=== PATIENT | female | born 1965 | race African-American/Black ===

== ENCOUNTER 2016-09-20 17:46 | Emergency (ER) | payer MEDICARE, OTHER ==
[~2016-09-20] VITALS: Ht 162.6 cm; Wt 76.0 kg
[~2016-09-20 17:46] MED LIST: AMBI10TA PO; IBUP800T23 PO; LORA1TAB PO; PROM25SU8 PO
[2016-09-20 17:47] VITALS: BP 127/81; PULSE 116; RESP 12; TEMP 99.3; O2SAT 94
[2016-09-20] MEDS ORDERED: [UNRECOGNIZED DRUG - CODE] (19:49)
[2016-09-20] MEDS ORDERED: LORA1TAB12 PO (19:49)
[2016-09-20] MEDS ORDERED: ZOLP10TA3 PO (19:49)
[2016-09-20] MEDS ORDERED: PERC10TA27 PO (19:49)
[2016-09-21 00:53] VITALS: BP 112/69; PULSE 110; RESP 20; O2SAT 95
[2016-09-21] MEDS ORDERED: methylPREDNISolone SOD SUCC 125 MG/2 ML VIAL IVP ONE (01:15)
[2016-09-21] MEDS ORDERED: SODIUM CHLORIDE 0.9% FLUSH 5 ML FLUSH IVF PRN (01:15)
[2016-09-21 01:25] VITALS: O2SAT 97
[2016-09-21] MEDS: RESP: ALBUTEROL 2.5 MG/IPRATROPIUM 0.5 MG NEB (SCH) INH (01:29)
--- NOTE | 2016-09-21 01:35 | RADRPT ---
EXAM DATE/TIME: 09/21/2016 01:22 [facility] COMPARISON: CHEST SINGLE AP, February 17, 2013, 3:39. CHEST SINGLE AP, August 17, 2013, 15:43. INDICATIONS : Shortness of breath. MEDICAL HISTORY : Throat Ca SURGICAL HISTORY : None. ENCOUNTER: Initial ACUITY: 1 day PAIN SCORE: 0/10 LOCATION: Bilateral chest FINDINGS: The cardiac silhouette is normal in transverse diameter. The lungs are free of acute parenchymal opac ity. No effusions are identified. [id number] is in place via left subclavian approach with its ti p in the superior vena cava. CONCLUSION: 1. No acute cardiopulmonary disease. Israel Mauricio MD on September 21, 2016 at 1:32 Board Certified Radiologist. This report was verified electronically.
[2016-09-21 01:48] LABS: AUTOMATED NEUTROPHIL # 5.4 TH/MM3 (1.8-7.7); BASOPHIL % 0.1 % (0.0-2.0); EOSINOPHIL # 0.1 TH/MM3 (0-0.4); EOSINOPHIL % 0.6 % (0.0-4.0); HEMATOCRIT 32.8 % (35.0-46.0); HEMO FLAGS DIFF FINAL; LYMPH % 24.3 % (9.0-44.0); MEAN CELL VOLUME 101.4 FL (80.0-100.0); MEAN CORPUSCULAR HEMOGLOBIN 34.9 PG (27.0-34.0); MEAN CORPUSCULAR HGB CONC 34.4 % (32.0-36.0); MONO % 10.1 % (0.0-8.0); NEUT % 64.9 % (16.0-70.0); PLATELET COUNT 135 TH/MM3 (150-450); RED BLOOD COUNT 3.23 MIL/MM3 (4.00-5.30); RED CELL DISTRIBUTION WIDTH 14.5 % (11.6-17.2); WHITE BLOOD COUNT 8.4 TH/MM3 (4.0-11.0)
[2016-09-21 02:17] LABS: POTASSIUM 3.8 MEQ/L (3.5-5.1)
--- NOTE | 2016-09-21 02:48 | PD ---
HPI Chief Complaint: Cold / Flu Symptoms Time Seen by Provider: 00:52 Travel History International Travel<30 days: No Contact w/Intl Traveler<30days: No Traveled to known affect area: No History of Present Illness HPI 51-year-old female arrives by private auto. She follows with Dr. Robles due to a history of Hodgkin's lymphoma. She underwent head scan recently which revealed findings in the chest concerning for possible pulmonary infection. The patient has been on Levaquin for 3 days or so. She reports a fairly frequent productive cough with white phlegm. Occasional dyspnea is reported. The patient received chemotherapy about 2 and half weeks ago. She is also scheduled for radiation therapy next week. Smoking 10 days ago. She reports a chest pain, mild, described as congestion. PFSH Past Medical History Blood Disorders: No Cancer: Yes (HODGKINS LYMPHOMA) Cardiovascular Problems: No Chemotherapy: Yes (EVERY 2.5 WEEKS) Diabetes: No Diminished Hearing: No Endocrine: No Glaucoma: No Genitourinary: No Headaches: Yes Hepatitis: No Hiatal Hernia: No Hypertension: No Musculoskeletal: No Psychiatric: No Reproductive: No Respiratory: No Radiation Therapy: Yes (last 2010) Thyroid Disease: No Tetanus Vaccination: < 5 Years Influenza Vaccination: No ?: Not Menopausal: Yes : 0 Past Surgical History Abdominal Surgery: Yes (ABD hernia repair) Body Medical Devices: UNDIAGNOSED LUMPS IN NECK, SURGERY SCHEDULED Cardiac Surgery: No Ear Surgery: No Endocrine Surgery: No Eye Surgery: No Gynecologic Surgery: Yes (HYSTERECTOMY 2002) Hysterectomy: Yes Oral Surgery: No Pacemaker: No Thoracic Surgery: No Other Surgery: Yes (STEM CELL TRANSPLANT 2008) Social History Alcohol Use: No Tobacco Use: Yes (3 cig/day) Substance Use: No Allergies-Medications (Allergen,Severity, Reaction): Coded Allergies: Percocet (Verified Allergy, Severe, Itching, 09/20/16) Zofran (Verified Allergy, Severe, Throat swelling, 09/20/16) Reported Meds & Prescriptions Reported Meds & Active Scripts Active Reported Percocet (Oxycodone-Acetaminophen) 10-325 mg Tab 1 Tab PO Q4H PRN Dulcolax Balance Liq (Polyethylene Glycol 3350) 1 Pow Pow Zolpidem (Zolpidem Tartrate) 10 Mg Tab 10 Mg PO HS PRN Lorazepam 1 Mg Tab 1 Mg PO Q8H PRN Review of Systems Except as stated in HPI: all other systems reviewed are Neg General / Constitutional: No: Fever, Chills Cardiovascular: Positive: Chest Pain or Discomfort Respiratory: Positive: Cough Physical Exam Narrative GENERAL: 51-year-old female pleasant and speaking in full sentences SKIN: Warm and dry. HEAD: Atraumatic. Normocephalic. EYES: Pupils equal and round. No scleral icterus. No injection or drainage. ENT: No nasal bleeding or discharge. Mucous membranes pink and moist. NECK: Trachea midline. No JVD. CARDIOVASCULAR: Regular rhythm. Trace tachycardia. RESPIRATORY: Lung sounds are clear. No accessory muscle use. No tachypnea GASTROINTESTINAL: Abdomen soft, non-tender, nondistended. Hepatic and splenic margins not palpable. MUSCULOSKELETAL: No obvious deformities. No clubbing. No cyanosis. No edema. NEUROLOGICAL: Awake and alert. No obvious cranial nerve deficits. Motor grossly within normal limits. Normal speech. PSYCHIATRIC: Appropriate mood and affect; insight and judgment normal. Data Data Last Documented VS Vital Signs Date Time Temp Pulse Resp B/P Pulse Ox O2 Delivery O2 Flow Rate FiO2 09/21/16 01:25 97 Room Air 09/21/16 00:53 110 20 112/69 09/20/16 17:47 99.3 VS reviewed Orders Complete Blood Count With Diff (09/21/16 01:06) Basic Metabolic Panel (Bmp) (09/21/16 01:06) Influenzae A/B Antigen (09/21/16 01:06) Iv Access Insert/Monitor (09/21/16 01:06) Ecg Monitoring (09/21/16 01:06) Oximetry (09/21/16 01:06) Oxygen Administration (09/21/16 01:06) Chest, Single Ap (09/21/16 01:06) Sodium Chloride 0.9% Flush (Ns Flush) (09/21/16 01:15) Methylprednisolone So Succ Inj (Solumedr (09/21/16 01:15) Albuterol-Ipratropium Neb (Duoneb Neb) (09/21/16 01:15) Albuterol Hfa Inh (Proair Hfa Inh) (09/21/16 03:30) Labs Laboratory Tests Test 09/21/16 01:20 White Blood Count 8.4 TH/MM3 Red Blood Count 3.23 MIL/MM3 Hemoglobin 11.3 GM/DL Hematocrit 32.8 % Mean Corpuscular Volume 101.4 FL Mean Corpuscular Hemoglobin 34.9 PG Mean Corpuscular Hemoglobin 34.4 % Concent Red Cell Distribution Width 14.5 % Platelet Count 135 TH/MM3 Mean Platelet Volume 8.2 FL Neutrophils (%) (Auto) 64.9 % Lymphocytes (%) (Auto) 24.3 % Monocytes (%) (Auto) 10.1 % Eosinophils (%) (Auto) 0.6 % Basophils (%) (Auto) 0.1 % Neutrophils # (Auto) 5.4 TH/MM3 Lymphocytes # (Auto) 2.0 TH/MM3 Monocytes # (Auto) 0.8 TH/MM3 Eosinophils # (Auto) 0.1 TH/MM3 Basophils # (Auto) 0.0 TH/MM3 CBC Comment DIFF FINAL Differential Comment Sodium Level 138 MEQ/L Potassium Level 3.8 MEQ/L Chloride Level 101 MEQ/L Carbon Dioxide Level 27.0 MEQ/L Anion Gap 10 MEQ/L Blood Urea Nitrogen 6 MG/DL Creatinine 0.82 MG/DL Estimat Glomerular Filtration 89 ML/MIN Rate Random Glucose 118 MG/DL Calcium Level 9.2 MG/DL MDM Medical Decision Making Medical Screen Exam Complete: Yes Emergency Medical Condition: Yes Medical Record Reviewed: Yes Differential Diagnosis Pneumonia, wheezing, reactive airway disease, COPD, volume overload Narrative Course CBC & BMP Diagram 09/21/16 01:20 Last 24 hours Impressions Chest X-Ray 09/21/16 0106 Signed Impressions: Service Date/Time: Wednesday, September 21, 2016 01:22 - CONCLUSION: 1. No acute cardiopulmonary disease. Israel Mauricio MD The patient is resting comfortably and feels better, is alert and in no distress. The patients results and examination findings were discussed. The repeat examination is unremarkable and benign. The history, exam, diagnostic testing, and current condition do not suggest any significant pathology to warrant further testing, continued ED treatment, admission, or surgical evaluation at this point. The vital signs have been stable. The patient does not have uncontrollable pain, intractable vomiting, or other significant symptoms. The patient's condition is stable and appropriate for discharge. The patient will pursue further outpatient evaluation with a primary care physician or other designated or consulting physician as indicated in the discharge instructions. The patient expressed understanding and was agreeable with this plan. Diagnosis Primary Impression: Cough Referrals: Jono Robles MD 1 day Additional Instructions: You have a choice when it comes to health care, and we are glad that you chose [facility]. Hopefully, we have met your expectations on today's visit. You are welcome to return to [facility] at any time, as we are committed to meeting the health care needs of our community. Med/Other Pt SpecificInfo: No Change to Meds Disposition: 01 DISCHARGE HOME Condition: Stable Duarte Kay MD Sep 21, 2016 02:48
[2016-09-21] MEDS ORDERED: ALBUTEROL SULFATE 90 MCG/ACT HFA 8 GM INHALER INH ONE (03:30)
== END 2016-09-21 03:32 | disposition home or self-care (01) ==
LOC: NEPC 17:46
DX: C81.90 Hodgkin lymphoma, unspecified, unspecified site (principal); R05 Cough; F17.210 Nicotine dependence, cigarettes, uncomplicated
CPT/HCPCS: 71010; 80048; 85025; 87804; 94640; 94664; 96374; 99283; J2930; 99212; G0463

== ENCOUNTER 2017-08-13 15:27 | Emergency (ER) | payer MEDICARE, MEDICAID ==
[~2017-08-13] VITALS: Ht 162.6 cm; Wt 75.0 kg
[~2017-08-13 15:27] MED LIST changes: -AMBI10TA PO; -IBUP800T23 PO; -LORA1TAB PO; +LORA1TAB12 PO; +PERC10TA27 PO; -PROM25SU8 PO; +ZOLP10TA3 PO; +[UNRECOGNIZED DRUG - CODE]
[2017-08-13 15:29] VITALS: BP 116/70; PULSE 123; RESP 18; TEMP 99.1; O2SAT 94
[2017-08-13] MEDS ORDERED: POLY3350 (15:50)
[2017-08-13] MEDS ORDERED: ZOLP10TA3 PO (15:50)
[2017-08-13] MEDS ORDERED: RESP: ALBUTEROL 2.5 MG/IPRATROPIUM 0.5 MG NEB (SCH) NEB ONE ×3 (16:00)
[2017-08-13] MEDS ORDERED: IBUPROFEN 600 MG TAB PO ONE (16:00)
--- NOTE | 2017-08-13 16:03 | PD ---
HPI Chief Complaint: Respiratory Symptoms Time Seen by Provider: 15:48 Travel History International Travel<30 days: No Contact w/Intl Traveler<30days: No Traveled to known affect area: No History of Present Illness HPI The patient was seen and examined in the presence of the nurse. This patient complains of shortness of breath. She has cough producing some white phlegm as well as congestion and fever. Current temp today was 101 orally. Patient has history of non-Hodgkin's lymphoma and is getting chemotherapy and radiation. She saw her oncologist couple of days ago and had a negative influenza swab and was started on Levaquin. Symptoms severity is moderate. No alleviating factors. Symptoms of dyspnea likely exacerbated by her smoking. Duration 3 days. PFSH Past Medical History Blood Disorders: No Cancer: Yes (HODGKINS LYMPHOMA) Cardiovascular Problems: No Chemotherapy: Yes Chest Pain: Yes Diabetes: No Diminished Hearing: No Endocrine: No Glaucoma: No Genitourinary: No Headaches: Yes Hepatitis: No Hiatal Hernia: No Hypertension: No Musculoskeletal: No Psychiatric: No Reproductive: No Respiratory: No Radiation Therapy: Yes (last 2010) Thyroid Disease: No ?: Not Menopausal: Yes : 0 Past Surgical History Abdominal Surgery: Yes (ABD hernia repair) Body Medical Devices: UNDIAGNOSED LUMPS IN NECK, SURGERY SCHEDULED Cardiac Surgery: No Ear Surgery: No Endocrine Surgery: No Eye Surgery: No Gynecologic Surgery: Yes (HYSTERECTOMY 2002) Hysterectomy: Yes Oral Surgery: No Pacemaker: No Thoracic Surgery: No Other Surgery: Yes (STEM CELL TRANSPLANT 2008 x2) Social History Alcohol Use: No (Occasionally) Tobacco Use: Yes (3 cig/day) Substance Use: No Allergies-Medications (Allergen,Severity, Reaction): Coded Allergies: acetaminophen (Unverified Allergy, Severe, Itching, 08/13/17) ondansetron (Unverified Allergy, Severe, Throat swelling, 08/13/17) oxycodone (Unverified Allergy, Severe, Itching, 08/13/17) Reported Meds & Prescriptions Reported Meds & Active Scripts Active Ventolin Hfa 18 GM Inh (Albuterol Sulfate) 90 Mcg/Act Aer 2 Puff INH Q4H PRN Prednisone 20 Mg Tab 40 Mg PO DAILY Take 40 mg (2 tablets) daily for 5 days Reported Zolpidem (Zolpidem Tartrate) 10 Mg Tab 10 Mg PO HS PRN Polyethylene Glycol 3350 17 Gram/Dose Pow Percocet (Oxycodone-Acetaminophen) 10-325 mg Tab 1 Tab PO Q4H PRN Zolpidem (Zolpidem Tartrate) 10 Mg Tab 10 Mg PO HS PRN Lorazepam 1 Mg Tab 1 Mg PO Q8H PRN Review of Systems General / Constitutional: Positive: Fever, Chills Eyes: No: Visual changes HENT: No: Headaches Cardiovascular: No: Chest Pain or Discomfort Respiratory: Positive: Cough, Shortness of Breath, Wheezing Gastrointestinal: No: Abdominal Pain Genitourinary: No: Dysuria Musculoskeletal: No: Pain Skin: No Rash Neurologic: No: Weakness Psychiatric: No: Depression Endocrine: No: Polydipsia Hematologic/Lymphatic: No: Easy Bruising Physical Exam Narrative GENERAL: Well-nourished, well-developed patient with fever and cough . SKIN: Focused skin assessment reveals no rash and nodules. Skin is Warm and dry. HEAD: Atraumatic. Normocephalic. EYES: Pupils equal and round. No scleral icterus. No injection or drainage. ENT: No nasal bleeding or discharge. Mucous membranes pink and moist. NECK: Trachea midline. No JVD. CARDIOVASCULAR: Regular rate and rhythm. No murmur appreciated. RESPIRATORY: No accessory muscle use. Diffuse Expiratory wheezing. Breath sounds equal bilaterally. GASTROINTESTINAL: Abdomen soft, non-tender, nondistended. Hepatic and splenic margins not palpable. MUSCULOSKELETAL: No obvious deformities. No clubbing. No cyanosis. No edema. NEUROLOGICAL: Awake and alert. No obvious cranial nerve deficits. Motor grossly within normal limits. Normal speech. PSYCHIATRIC: Appropriate mood and affect; insight and judgment seems a bit reduced Data Data Last Documented VS Vital Signs Date Time Temp Pulse Resp B/P (MAP) Pulse Ox O2 Delivery O2 Flow Rate FiO2 08/13/17 17:01 94 Nasal Cannula 2.00 08/13/17 15:29 99.1 123 18 116/70 (85) Orders Orders Complete Blood Count With Diff (08/13/17 15:55) Basic Metabolic Panel (Bmp) (08/13/17 15:55) Ibuprofen (Motrin) (08/13/17 16:00) Chest, Single Ap (08/13/17 ) Blood Culture (08/13/17 15:58) Albuterol-Ipratropium Neb (Duoneb Neb) (08/13/17 16:00) Albuterol-Ipratropium Neb (Duoneb Neb) (08/13/17 16:00) Albuterol-Ipratropium Neb (Duoneb Neb) (08/13/17 16:00) Sodium Chlor 0.9% 1000 Ml Inj (Ns 1000 M (08/13/17 16:15) Prednisone (Deltasone) (08/13/17 17:15) Labs Laboratory Tests Test 08/13/17 16:31 White Blood Count 6.9 TH/MM3 Red Blood Count 3.32 MIL/MM3 Hemoglobin 12.3 GM/DL Hematocrit 36.0 % Mean Corpuscular Volume 108.3 FL Mean Corpuscular Hemoglobin 36.9 PG Mean Corpuscular Hemoglobin Concent 34.1 % Red Cell Distribution Width 14.5 % Platelet Count 76 TH/MM3 Mean Platelet Volume 7.9 FL Neutrophils (%) (Auto) 86.9 % Lymphocytes (%) (Auto) 7.6 % Monocytes (%) (Auto) 5.2 % Eosinophils (%) (Auto) 0.0 % Basophils (%) (Auto) 0.3 % Neutrophils # (Auto) 6.0 TH/MM3 Lymphocytes # (Auto) 0.5 TH/MM3 Monocytes # (Auto) 0.4 TH/MM3 Eosinophils # (Auto) 0.0 TH/MM3 Basophils # (Auto) 0.0 TH/MM3 CBC Comment AUTO DIFF Blood Urea Nitrogen 5 MG/DL Creatinine 0.69 MG/DL Random Glucose 110 MG/DL Calcium Level 8.0 MG/DL Sodium Level 137 MEQ/L Potassium Level 3.6 MEQ/L Chloride Level 102 MEQ/L Carbon Dioxide Level 26.3 MEQ/L Anion Gap 9 MEQ/L Estimat Glomerular Filtration Rate 108 ML/MIN [facility] Medical Decision Making Medical Screen Exam Complete: Yes Emergency Medical Condition: Yes Medical Record Reviewed: Yes Differential Diagnosis Pneumonia, bronchitis, sepsis, neutropenia Narrative Course I have reviewed the patient's electronic medical record. I reviewed her oncologist note from just 3 days ago Port is accessed Blood culture obtained I reviewed her chest x-ray which is normal CBC shows normal white cell count with thrombus that opinion Metabolic profile is normal I gave her dose of Tylenol No clinical suspicion of bacterial infection. I think she has an acute viral bronchitis with acute bronchospasm. After nebulizer treatments that is cleared up. She feels much better. Stop smoking. I prescribed her an albuterol inhaler and 5 days of prednisone. She will finish her Levaquin therapy Diagnosis Primary Impression: Acute viral bronchitis Additional Impressions: Wheezing Non Hodgkin's lymphoma Qualified Codes: C85.90 - Non-Hodgkin lymphoma, unspecified, unspecified site Thrombocytopenia Additional Instructions: The patient was advised to follow up with their physician and return if they worsen. Stop smoking Med/Other Pt SpecificInfo: Prescription(s) given Scripts Albuterol 18 GM Inh (Ventolin Hfa 18 GM Inh) 90 Mcg/Act Aer 2 PUFF INH Q4H Y for SHORTNESS OF BREATH, #1 INHALER 0 Refills Prov: Guicho Rick MD 08/13/17 Prednisone (Prednisone) 20 Mg Tab 40 MG PO DAILY, #10 TAB 0 Refills Take 40 mg (2 tablets) daily for 5 days Prov: Guicho Rick MD 08/13/17 Disposition: 01 DISCHARGE HOME Condition: Stable Guicho Rick MD Aug 13, 2017 16:03
[2017-08-13] MEDS ORDERED: SODIUM CHLOR 0.9% 1000 ML INJ 1,000 ML IV ONE (16:15)
[2017-08-13 16:39] LABS: BASOPHIL % 0.3 % (0.0-2.0); HEMOGLOBIN 12.3 GM/DL (11.6-15.3); LYMPH % 7.6 % (9.0-44.0); LYMPHOCYTE # 0.5 TH/MM3 (1.0-4.8); MEAN CELL VOLUME 108.3 FL (80.0-100.0); MEAN CORPUSCULAR HEMOGLOBIN 36.9 PG (27.0-34.0); MEAN CORPUSCULAR HGB CONC 34.1 % (32.0-36.0); MEAN PLATELET VOLUME 7.9 FL (7.0-11.0); MONO % 5.2 % (0.0-8.0); MONOCYTE # 0.4 TH/MM3 (0-0.9); NEUT % 86.9 % (16.0-70.0); PLATELET COUNT 76 TH/MM3 (150-450); RED BLOOD COUNT 3.32 MIL/MM3 (4.00-5.30); RED CELL DISTRIBUTION WIDTH 14.5 % (11.6-17.2); WHITE BLOOD COUNT 6.9 TH/MM3 (4.0-11.0)
--- NOTE | 2017-08-13 16:57 | RADRPT ---
EXAM DATE/TIME: 08/13/2017 16:05 [facility] COMPARISON: CHEST SINGLE AP, September 21, 2016, 1:22. INDICATIONS : Fever. MEDICAL HISTORY : Throat Ca. SURGICAL HISTORY : None. ENCOUNTER: Initial ACUITY: 1 day PAIN SCORE: 0/10 LOCATION: Bilateral chest FINDINGS: A single view of the chest demonstrates the lungs to be symmetrically aerated without evidence of mas s, infiltrate or effusion. The cardiomediastinal contours are unremarkable. Osseous structures are intact. [id number] is in place via left subclavian approach with its tip in the superior vena cav a. CONCLUSION: 1. No acute cardiopulmonary disease. Israel Mauricio MD on August 13, 2017 at 16:54 Board Certified Radiologist. This report was verified electronically.
[2017-08-13 16:59] LABS: BICARBONATE 26.3 MEQ/L (21.0-32.0); CREATININE 0.69 MG/DL (0.50-1.00)
[2017-08-13 17:01] VITALS: O2SAT 94
[2017-08-13] MEDS ORDERED: predniSONE 20 MG TAB PO ONE (17:15)
[2017-08-13] MEDS ORDERED: VENTAER INH ×3 (17:41→17:53)
[2017-08-13] MEDS ORDERED: PRED20 PO ×3 (17:41→17:53)
[2017-08-13 18:14] LABS: BANDS 15 % (0-6); LYMPHOCYTES 1 % (9-44); MONOCYTES 3 % (0-8); NEUTROPHIL # MANUAL DIFF 6.6 TH/MM3 (1.8-7.7); POLYS (SEG NEUTROPHILS) 81 % (16-70)
== END 2017-08-13 18:16 | disposition home or self-care (01) ==
LOC: NEPC 15:27
DX: J20.8 Acute bronchitis due to other specified organisms (principal); D69.6 Thrombocytopenia, unspecified; C85.90 Non-Hodgkin lymphoma, unspecified, unspecified site; F17.210 Nicotine dependence, cigarettes, uncomplicated; Z88.5 Allergy status to narcotic agent; Z88.8 Allergy status to other drugs, medicaments and biological substances; Z88.6 Allergy status to analgesic agent; Z79.899 Other long term (current) drug therapy
CPT/HCPCS: 71045; 80048; 85007; 85027; 87040; 94640; 94664; 96360; 99284; J7030; J7512

== ENCOUNTER 2017-08-14 12:01 | Inpatient (IN) | payer MEDICARE, MEDICAID ==
[~2017-08-14] VITALS: Ht 162.6 cm; Wt 68.5 kg
[~2017-08-14 12:01] MED LIST changes: +POLY3350; +PRED20 PO; +VENTAER INH; -[UNRECOGNIZED DRUG - CODE]
[2017-08-14 12:09] VITALS: BP 137/69; PULSE 117; RESP 26; TEMP 97.2; O2SAT 82
[2017-08-14] MEDS: RESP: ALBUTEROL 2.5 MG/IPRATROPIUM 0.5 MG NEB (SCH) INH ×2 (12:30→12:45)
--- NOTE | 2017-08-14 13:02 | PD ---
HPI Chief Complaint: Respiratory Distress Time Seen by Provider: 12:18 Travel History International Travel<30 days: No Contact w/Intl Traveler<30days: No Traveled to known affect area: No History of Present Illness HPI 52-year-old female came to the emergency room with history of respiratory distress for past 2-3 days and progressively worsening. Patient says that she was in the emergency room yesterday and was seen by the ER physician. She was started on prednisone. However patient says that she did has not felt better and in fact this morning when she woke up she was still feeling very short of breath and worse to some extent. When she arrived in the ER she was saturating 85-86% on room air. Patient does not require oxygen at home. Patient has history of Hodgkin's lymphoma and sees Dr. Robles. 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 Patient was afebrile here. Patient was started on Levaquin by Dr. Robles 2-3 days ago when she had a temperature 101. Her influenza test was negative. She appears to be in moderate distress. [facility] Past Medical History Narrative Medical List of her past medical, surgical, social and family history is reviewed from the nursing note. Blood Disorders: No Cancer: Yes (HODGKINS LYMPHOMA) Cardiovascular Problems: No Chemotherapy: Yes Chest Pain: Yes Diabetes: No Diminished Hearing: No Endocrine: No Glaucoma: No Genitourinary: No Headaches: Yes Hepatitis: No Hiatal Hernia: No Hypertension: No Musculoskeletal: No Psychiatric: No Reproductive: No Respiratory: No Radiation Therapy: Yes (last 2010) Thyroid Disease: No ?: Not Menopausal: Yes : 0 Past Surgical History Abdominal Surgery: Yes (ABD hernia repair) Body Medical Devices: UNDIAGNOSED LUMPS IN NECK, SURGERY SCHEDULED Cardiac Surgery: No Ear Surgery: No Endocrine Surgery: No Eye Surgery: No Gynecologic Surgery: Yes (HYSTERECTOMY 2002) Hysterectomy: Yes Oral Surgery: No Pacemaker: No Thoracic Surgery: No Other Surgery: Yes (STEM CELL TRANSPLANT 2008 x2) Social History Alcohol Use: No (Occasionally) Tobacco Use: Yes (3 cig/day QUIT Monday08/11/17) Substance Use: No Allergies-Medications (Allergen,Severity, Reaction): Coded Allergies: acetaminophen (Unverified Allergy, Severe, Itching, 08/13/17) ondansetron (Unverified Allergy, Severe, Throat swelling, 08/13/17) oxycodone (Unverified Allergy, Severe, Itching, 08/13/17) Comments List of her allergies reviewed from the nursing note. Reported Meds & Prescriptions Reported Meds & Active Scripts Active Ventolin Hfa 18 GM Inh (Albuterol Sulfate) 90 Mcg/Act Aer 2 Puff INH Q4H PRN Prednisone 20 Mg Tab 40 Mg PO DAILY Take 40 mg (2 tablets) daily for 5 days Reported Zolpidem (Zolpidem Tartrate) 10 Mg Tab 10 Mg PO HS PRN Polyethylene Glycol 3350 17 Gram/Dose Pow Percocet (Oxycodone-Acetaminophen) 10-325 mg Tab 1 Tab PO Q4H PRN Zolpidem (Zolpidem Tartrate) 10 Mg Tab 10 Mg PO HS PRN Lorazepam 1 Mg Tab 1 Mg PO Q8H PRN Narrative Medication List of her home medications reviewed from the nursing note. Review of Systems Except as stated in HPI: all other systems reviewed are Neg Respiratory: Positive: Shortness of Breath Physical Exam Narrative GENERAL: Awake, alert, moderate distress SKIN: Focused skin assessment warm/dry. HEAD: Atraumatic. Normocephalic. EYES: Pupils equal and round. No scleral icterus. No injection or drainage. ENT: No nasal bleeding or discharge. Mucous membranes pink and moist. NECK: Trachea midline. No JVD. CARDIOVASCULAR: Regular rate and rhythm. No murmur appreciated. RESPIRATORY: Diminished air entry more to the left with fine crackles. Tachypnea. Accessory muscles of respiration used. GASTROINTESTINAL: Abdomen soft, non-tender, nondistended. Hepatic and splenic margins not palpable. MUSCULOSKELETAL: No obvious deformities. No clubbing. No cyanosis. No edema. NEUROLOGICAL: Awake and alert. No obvious cranial nerve deficits. Motor grossly within normal limits. Normal speech. PSYCHIATRIC: Appropriate mood and affect; insight and judgment normal. Data Data Last Documented VS Vital Signs Date Time Temp Pulse Resp B/P (MAP) Pulse Ox O2 Delivery O2 Flow Rate FiO2 08/14/17 12:30 93 Nasal Cannula 6.00 08/14/17 12:24 38 08/14/17 12:09 97.2 117 137/69 (91) Orders Orders Sepsis Workup Initiated (08/14/17 ) Complete Blood Count With Diff (08/14/17 12:29) Comprehensive Metabolic Panel (08/14/17 12:29) Lactic Acid Sepsis Protocol (08/14/17 12:29) Urinalysis - C+S If Indicated (08/14/17 12:29) Blood Culture (08/14/17 12:29) Chest, Single Ap (08/14/17 12:29) Blood Glucose (08/14/17 12:29) Ecg Monitoring (08/14/17 12:29) Iv Access Insert/Monitor (08/14/17 12:29) Oximetry (08/14/17 12:29) Oxygen Administration (08/14/17 12:29) Albuterol-Ipratropium Neb (Duoneb Neb) (08/14/17 12:30) Arterial Blood Gas (Abg) (08/14/17 ) Cefepime Inj (Maxipime Inj) (08/14/17 13:15) Ct Thorax/ Chest Wo Iv Contras (08/14/17 ) Consult Medical Oncology (08/14/17 ) (Hub Use Only)Inp Phy Cons/Ref (08/14/17 ) Cefepime Inj (Maxipime Inj) (08/14/17 16:00) Admit To Inpatient (08/14/17 ) Vital Signs (Adult) Q4H (08/14/17 15:00) Activity Oob With Assistance (08/14/17 15:00) Diet Heart Healthy (08/14/17 Dinner) Sodium Chlor 0.9% 1000 Ml Inj (Ns 1000 M (08/14/17 15:00) Sodium Chloride 0.9% Flush (Ns Flush) (08/14/17 15:00) Sodium Chloride 0.9% Flush (Ns Flush) (08/14/17 21:00) Basic Metabolic Panel (Bmp) (08/15/17 06:00) Complete Blood Count With Diff (08/15/17 06:00) Resp Oxygen Shaji C Titrat 1-4 L (08/14/17 ) Enoxaparin Inj (Lovenox Inj) (08/14/17 16:00) Naloxone Inj (Narcan Inj) (08/14/17 15:00) Magnesium Hydroxide Liq (Milk Of Magnesi (08/14/17 15:00) Sennosides (Senokot) (08/14/17 15:00) Bisacodyl Supp (Dulcolax Supp) (08/14/17 15:00) Lactulose Liq (Lactulose Liq) (08/14/17 15:00) Inpatient Certification (08/14/17 ) Admit Order (Ed Use Only) (08/14/17 15:02) Labs Laboratory Tests Test 08/14/17 12:30 08/14/17 12:40 08/14/17 13:20 Blood Gas Puncture Site RT RADIAL Blood Gas Patient Temperature 98.6 Blood Gas HCO3 26 mmol/L Blood Gas Base Excess 3.0 mmol/L Blood Gas Oxygen Saturation 89 % Arterial Blood pH 7.50 Arterial Blood Partial Pressure CO2 34 mmHg Arterial Blood Partial Pressure O2 58 mmHG Arterial Blood Oxygen Content 15.7 Vol % Arterial Blood Carboxyhemoglobin 1.7 % Arterial Blood Methemoglobin 0.7 % Blood Gas Hemoglobin 12.6 G/DL Oxygen Delivery Device NASAL CANNULA Blood Gas Liter Flow 6 L/M White Blood Count 9.0 TH/MM3 Red Blood Count 3.55 MIL/MM3 Hemoglobin 12.9 GM/DL Hematocrit 38.9 % Mean Corpuscular Volume 109.7 FL Mean Corpuscular Hemoglobin 36.2 PG Mean Corpuscular Hemoglobin Concent 33.0 % Red Cell Distribution Width 14.6 % Platelet Count 87 TH/MM3 Mean Platelet Volume 8.7 FL Neutrophils (%) (Auto) 87.3 % Lymphocytes (%) (Auto) 6.7 % Monocytes (%) (Auto) 5.9 % Eosinophils (%) (Auto) 0.0 % Basophils (%) (Auto) 0.1 % Neutrophils # (Auto) 7.9 TH/MM3 Lymphocytes # (Auto) 0.6 TH/MM3 Monocytes # (Auto) 0.5 TH/MM3 Eosinophils # (Auto) 0.0 TH/MM3 Basophils # (Auto) 0.0 TH/MM3 CBC Comment AUTO DIFF Differential Comment AUTO DIFF CONFIRMED Platelet Estimate LOW Platelet Morphology Comment NORMAL Blood Urea Nitrogen 5 MG/DL Creatinine 0.78 MG/DL Random Glucose 122 MG/DL Total Protein 7.9 GM/DL Albumin 3.1 GM/DL Calcium Level 8.9 MG/DL Alkaline Phosphatase 133 U/L Aspartate Amino Transf (AST/SGOT) 66 U/L Alanine Aminotransferase (ALT/SGPT) 57 U/L Total Bilirubin 0.5 MG/DL Sodium Level 137 MEQ/L Potassium Level 3.7 MEQ/L Chloride Level 101 MEQ/L Carbon Dioxide Level 28.2 MEQ/L Anion Gap 8 MEQ/L Estimat Glomerular Filtration Rate 94 ML/MIN Lactic Acid Level 2.0 mmol/L Urine Color YELLOW Urine Turbidity CLEAR Urine pH 6.5 Urine Specific [place] 1.005 Urine Protein 30 mg/dL Urine Glucose (UA) NEG mg/dL Urine Ketones NEG mg/dL Urine Occult Blood TRACE Urine Nitrite NEG Urine Bilirubin NEG Urine Urobilinogen LESS THAN 2.0 MG/DL Urine Leukocyte Esterase NEG Urine RBC 1 /hpf Urine WBC 1 /hpf Urine Squamous Epithelial Cells 1 /hpf Urine Transitional Epithelial Cells <1 /hpf Microscopic Urinalysis Comment CATH-CULT NOT IND MDM Medical Decision Making Medical Screen Exam Complete: Yes Emergency Medical Condition: Yes Medical Record Reviewed: Yes Differential Diagnosis Pneumonia, pleural effusion, lung mass Narrative Course 1:24 PM patient was given 1 breathing treatment. Awaiting for the blood test results. I discussed her case with her oncologist Dr. Sinclair will be sent patient needs to be admitted. He wanted the patient to get a dose of cefepime and steroid and wanted a CT scan of her chest without contrast to look for any worsening of the tumor or chemotherapy related pneumonitis. Awaiting for blood test result and then patient will be hospitalized. Dr. Robles will consult on her. 3:[address] scan shows diffuse pneumonitis which could be drug-induced as suspected by Dr. Robles as well. Patient has been admitted to the hospitalist. Critical Care Narrative Aggregate critical care time was 45 minutes. Time to perform other separately billable procedures was not included in the critical care time. My time did not include minutes spent treating any other patients simultaneously or on activities that did not directly contribute to the patient's treatment. The services I provided to this patient were to treat and/or prevent clinically significant deterioration that could result in: Respiratory distress, hypoxia, diffuse interstitial pneumonitis I provided critical care services requiring my management, as noted below: Chart data review, documentation time, medication orders and management, vital sign assessments/reviewing monitor data, ordering and reviewing lab tests, ordering and interpreting/reviewing x-rays and diagnostic studies, care of the patient and discussion of the patient with the admitting physicians. Procedures EKG Prior to Arrival: No Physician Communication Physician Communication Dr. Robles Diagnosis Primary Impression: Respiratory distress Additional Impressions: Hypoxia Interstitial pneumonitis Admitting Information Admitting Physician Requests: Admit Sherley Wynne MD Aug 14, 2017 13:02
[2017-08-14 13:14] LABS: AUTOMATED NEUTROPHIL # 7.9 TH/MM3 (1.8-7.7); BASOPHIL % 0.1 % (0.0-2.0); HEMATOCRIT 38.9 % (35.0-46.0); HEMOGLOBIN 12.9 GM/DL (11.6-15.3); LYMPH % 6.7 % (9.0-44.0); LYMPHOCYTE # 0.6 TH/MM3 (1.0-4.8); MEAN CELL VOLUME 109.7 FL (80.0-100.0); MEAN CORPUSCULAR HEMOGLOBIN 36.2 PG (27.0-34.0); MEAN PLATELET VOLUME 8.7 FL (7.0-11.0); MONO % 5.9 % (0.0-8.0); MONOCYTE # 0.5 TH/MM3 (0-0.9); NEUT % 87.3 % (16.0-70.0); PLATELET COUNT 87 TH/MM3 (150-450); RED BLOOD COUNT 3.55 MIL/MM3 (4.00-5.30); RED CELL DISTRIBUTION WIDTH 14.6 % (11.6-17.2)
[2017-08-14] MEDS ORDERED: CEFEPIME INJ 2,000 MG in SODIUM CHLORIDE 0.9% INJ 100 ML IV ONE (13:15)
[2017-08-14 13:32] LABS: BILIRUBIN, URINE NEG (NEG); BLOOD, URINE TRACE (NEG); GLUCOSE,URINE NEG (NEG); KETONE, URINE NEG (NEG); NITRITE,URINE NEG (NEG); PH, URINE 6.5 (5.0-8.5); SQUAMOUS EPITHELIAL CELL URINE 1 /hpf (0-5); TRANSITIONAL EPI CELLS, URINE <1 /hpf; URINE COLOR YELLOW (YELLW/STRAW); URINE LEUKOCYTE ESTERASE NEG (NEG)
[2017-08-14 13:40] LABS: ALBUMIN 3.1 GM/DL (3.4-5.0); ALT (GPT) 57 U/L (10-53); AST (GOT) 66 U/L (15-37); BICARBONATE 28.2 MEQ/L (21.0-32.0); BLOOD UREA NITROGEN 5 MG/DL (7-18); CALCIUM 8.9 MG/DL (8.5-10.1); CHLORIDE 101 MEQ/L (98-107); CREATININE 0.78 MG/DL (0.50-1.00); GLOMERULAR FILTRATION RATE 94 ML/MIN (>89); GLUCOSE,RANDOM 122 MG/DL (74-106); SODIUM (NA) 137 MEQ/L (136-145)
[2017-08-14 13:53] LABS: ALKALINE PHOSPHATASE 133 U/L (45-117); TOTAL BILIRUBIN ADULT 0.5 MG/DL (0.2-1.0); TOTAL PROTEIN 7.9 GM/DL (6.4-8.2)
--- NOTE | 2017-08-14 14:02 | RADRPT ---
EXAM DATE/TIME: 08/14/2017 12:56 [facility] COMPARISON: CHEST SINGLE AP, August 13, 2017, 16:05. INDICATIONS : Short of breath with wheezing. MEDICAL HISTORY : Lymphoma. SURGICAL HISTORY : None. ENCOUNTER: Initial ACUITY: 1 day PAIN SCORE: 3/10 LOCATION: Bilateral chest FINDINGS: [id number] in good position. Moderate interstitial edema is present. Cardiac size is appropriate in spite of interstitial edema. Inflammatory process is suspected. Ther e is no pneumothorax or pleural effusion. CONCLUSION: Interstitial fossa is in both lungs without cardiomegaly. Noncardiogenic process is suspected. Alan Mart MD FACR on August 14, 2017 at 13:59 Board Certified Radiologist. This report was verified electronically.
--- NOTE | 2017-08-14 14:37 | RADRPT ---
EXAM DATE/TIME: 08/14/2017 13:51 [facility] COMPARISON: No previous studies available for comparison. INDICATIONS : Shortness of breath,congestion,cough. RADIATION DOSE: 6.33 CTDIvol (mGy) MEDICAL HISTORY : Hodgkins lymphoma SURGICAL HISTORY : Hysterectomy. Hernia stem cell transplant ENCOUNTER: Initial ACUITY: 1 day PAIN SCALE: 0/10 LOCATION: chest TECHNIQUE: Volumetric scanning of the chest was performed. Using automated exposure control and adjustment of t he mA and/or kV according to patient size, radiation dose was kept as low as reasonably achievable to obtain optimal diagnostic quality images. DICOM format image data is available electronically for r eview and comparison. Follow-up recommendations for detected pulmonary nodules are based at a minimum on nodule size and pa tient risk factors according to Fleischner Society Guidelines. FINDINGS: LUNGS: Patchy groundglass opacities in both lungs with normal heart size PLEURAE: There is no pleural thickening or pleural effusion. MEDIASTINUM: The heart and great vessels demonstrate no acute abnormality. There is no mediastinal or hilar lymph adenopathy. AXILLAE: Within normal limits. No lymphadenopathy. MUSCULOSKELETAL: Within normal limits for patient age. MISCELLANEOUS: The visualized upper abdominal organs demonstrate no acute abnormality. CONCLUSION: Patchy groundglass opacity scattered throughout both lungs without pleural effusion. There is no pne umothorax. There is no adenopathy. Considerations include both inflammatory process as well as drug induced. Alan Mart MD FACR on August 14, 2017 at 14:34 Board Certified Radiologist. This report was verified electronically.
[2017-08-14] MEDS ORDERED: MAGNESIUM HYDROXIDE SUSP 30 ML CUP PO PRN (15:00)
[2017-08-14] MEDS ORDERED: SODIUM CHLORIDE 0.9% FLUSH 10 ML FLUSH IV FLUSH PRN (15:00)
[2017-08-14] MEDS ORDERED: BISACODYL 10 MG SUPP RECTAL PRN (15:00)
[2017-08-14] MEDS ORDERED: NALOXONE HCL 0.4 MG/ML AMP IV PUSH PRN (15:00)
[2017-08-14] MEDS ORDERED: SENNOSIDES 8.6 MG TAB PO PRN (15:00)
[2017-08-14] MEDS ORDERED: LACTULOSE SYRUP 20 GM/30 ML CUP PO PRN (15:00)
[2017-08-14 15:47] VITALS: BP 136/70; PULSE 109; RESP 21; O2SAT 94
[2017-08-14] MEDS: SODIUM CHLOR 0.9% 1000 ML INJ 1,000 ML IV SCH (15:47)
[2017-08-14] MEDS: CEFEPIME INJ 2,000 MG in SODIUM CHLORIDE 0.9% INJ 100 ML IV SCH (16:00)
[2017-08-14] MEDS ORDERED: methylPREDNISolone SOD SUCC 125 MG/2 ML VIAL IV PUSH ONE (16:15)
[2017-08-14] MEDS: ENOXAPARIN SODIUM 40 MG/0.4 ML SYRINGE SQ SCH (17:07)
[2017-08-14 17:36] VITALS: BP 147/70; PULSE 109; RESP 20; TEMP 99.7; O2SAT 90
[2017-08-14] MEDS ORDERED: BENZONATATE 100 MG CAP PO PRN (18:15)
--- NOTE | 2017-08-14 18:25 | HHI.HP ---
[facility] Service [facility] Primary Care Physician Jono Robles MD Admission Diagnosis respiratory distress, hypoxia, diffuse interstitial pneumonitis Diagnoses: (1) Sepsis (2) Cough (3) Interstitial pneumonitis (4) Respiratory distress (5) Hypoxia Chief Complaint: Dyspnea, cough Travel History International Travel<30 Days: No Contact w/Intl Traveler <30 Da: No Traveled to Known Affected Are: No Sepsis Criteria SIRS Criteria (2 or more): Heart rate over 90, RR > 20 or PaCO2 < 32 Sepsis Criteria (SIRS+source): Infect source susp/known Criteria Outcome: Meets sepsis criteria History of Present Illness The patient is a 52-year-old female with history of Hodgkin's lymphoma who presented to the emergency department with complaint of worsening dyspnea and cough over the past few days. She states that she was seen by her oncologist, Dr. Robles, a few days ago and was started on Levaquin for presumed respiratory infection. She states she had a temperature of 101 at that time. Her symptoms did not improve and today she had worsening dyspnea. She resented to the emergency department was noted to have an oxygen saturation of 85% on room air. She does not use oxygen at home. Her most recent chemotherapy was Monday. Most recent radiation therapy was November 2016. Review of Systems Constitutional: DENIES: Fever, Chills, Night Sweats Eyes: DENIES: Blurred vision, Vision loss Ears, nose, mouth, throat: DENIES: Hearing loss Respiratory: COMPLAINS OF: Cough, Wheezing, Sputum production, Shortness of breath Cardiovascular: COMPLAINS OF: Dyspnea on Exertion, DENIES: Chest pain, Palpitations, Lower Extremity Edema Gastrointestinal: DENIES: Abdominal pain, Constipation, Diarrhea, Nausea, Vomiting Genitourinary: DENIES: Urinary frequency, Urinary incontinence, Urgency, Hematuria, Dysuria, Nocturia Musculoskeletal: DENIES: Joint pain, Muscle aches Integumentary: DENIES: Pruritus, Rash Hematologic/lymphatic: DENIES: Bruising Neurologic: DENIES: Headache Past Family Social History Past Medical History Hodgkin's lymphoma Past Surgical History Stencil transplant 2 Hysterectomy Abdominal hernia repair Reported Medications Ventolin Hfa 18 GM Inh (Albuterol Sulfate) 90 Mcg/Act Aer 2 Puff INH Q4H PRN Prednisone 20 Mg Tab 40 Mg PO DAILY Take 40 mg (2 tablets) daily for 5 days Zolpidem (Zolpidem Tartrate) 10 Mg Tab 10 Mg PO HS PRN Polyethylene Glycol 3350 17 Gram/Dose Pow Percocet (Oxycodone-Acetaminophen) 10-325 mg Tab 1 Tab PO Q4H PRN Zolpidem (Zolpidem Tartrate) 10 Mg Tab 10 Mg PO HS PRN Lorazepam 1 Mg Tab 1 Mg PO Q8H PRN Allergies: Coded Allergies: acetaminophen (Unverified Allergy, Severe, Itching, 08/13/17) ondansetron (Unverified Allergy, Severe, Throat swelling, 08/13/17) oxycodone (Unverified Allergy, Severe, Itching, 08/13/17) Family History Heart disease Non-Hodgkin's lymphoma Diabetes Social History Quit smoking 10 days ago. Reports occasional alcohol use. No illicit drug use. Physical Exam Vital Signs Vital Signs Date Time Temp Pulse Resp B/P (MAP) Pulse Ox O2 Delivery O2 Flow Rate FiO2 08/14/17 15:47 109 21 136/70 (92) 94 Nasal Cannula 6.00 08/14/17 12:30 93 Nasal Cannula 6.00 08/14/17 12:24 38 93 Nasal Cannula 6.00 08/14/17 12:09 97.2 117 26 137/69 (91) 82 Room Air Physical Exam GENERAL: Well-nourished, well-developed female in no acute distress. HEENT: Normocephalic, atraumatic. Pupils equal, round and reactive. Extraocular movements intact. No scleral icterus. No injection or drainage. Oropharynx is clear. Mucous membranes are moist. CARDIOVASCULAR: Regular rate and rhythm without murmurs, gallops, or rubs. RESPIRATORY: Diffuse crackles. Breathing is non-labored. GASTROINTESTINAL: Abdomen soft, non-tender, nondistended. EXTREMITIES: No lower extremity edema. No calf tenderness. PSYCH: Alert and oriented x 3. Laboratory Laboratory Tests Test 08/14/17 12:30 08/14/17 12:40 08/14/17 13:20 Blood Gas Puncture Site RT RADIAL Blood Gas Patient Temperature 98.6 Blood Gas HCO3 26 Blood Gas Base Excess 3.0 Blood Gas Oxygen Saturation 89 Arterial Blood pH 7.50 Arterial Blood Partial Pressure CO2 34 Arterial Blood Partial Pressure O2 58 Arterial Blood Oxygen Content 15.7 Arterial Blood Carboxyhemoglobin 1.7 Arterial Blood Methemoglobin 0.7 Blood Gas Hemoglobin 12.6 Oxygen Delivery Device NASAL CANNULA Blood Gas Liter Flow 6 White Blood Count 9.0 Red Blood Count 3.55 Hemoglobin 12.9 Hematocrit 38.9 Mean Corpuscular Volume 109.7 Mean Corpuscular Hemoglobin 36.2 Mean Corpuscular Hemoglobin Concent 33.0 Red Cell Distribution Width 14.6 Platelet Count 87 Mean Platelet Volume 8.7 Neutrophils (%) (Auto) 87.3 Lymphocytes (%) (Auto) 6.7 Monocytes (%) (Auto) 5.9 Eosinophils (%) (Auto) 0.0 Basophils (%) (Auto) 0.1 Neutrophils # (Auto) 7.9 Lymphocytes # (Auto) 0.6 Monocytes # (Auto) 0.5 Eosinophils # (Auto) 0.0 Basophils # (Auto) 0.0 CBC Comment AUTO DIFF Differential Comment AUTO DIFF CONFIRMED Platelet Estimate LOW Platelet Morphology Comment NORMAL Blood Urea Nitrogen 5 Creatinine 0.78 Random Glucose 122 Total Protein 7.9 Albumin 3.1 Calcium Level 8.9 Alkaline Phosphatase 133 Aspartate Amino Transf (AST/SGOT) 66 Alanine Aminotransferase (ALT/SGPT) 57 Total Bilirubin 0.5 Sodium Level 137 Potassium Level 3.7 Chloride Level 101 Carbon Dioxide Level 28.2 Anion Gap 8 Estimat Glomerular Filtration Rate 94 Lactic Acid Level 2.0 Urine Color YELLOW Urine Turbidity CLEAR Urine pH 6.5 Urine Specific [place] 1.005 Urine Protein 30 Urine Glucose (UA) NEG Urine Ketones NEG Urine Occult Blood TRACE Urine Nitrite NEG Urine Bilirubin NEG Urine Urobilinogen LESS THAN 2.0 Urine Leukocyte Esterase NEG Urine RBC 1 Urine WBC 1 Urine Squamous Epithelial Cells 1 Urine Transitional Epithelial Cells <1 Microscopic Urinalysis Comment CATH-CULT NOT IND Date/Time Source Procedure Growth Status 08/14/17 12:45 Blood Peripheral Aerobic Blood Culture Pending Received 08/14/17 12:45 Blood Peripheral Anaerobic Blood Culture Pending Received Result Diagram: 08/14/17 1240 08/14/17 1240 Imaging Last Impressions Chest X-Ray 08/14/17 1229 Signed Impressions: Service Date/Time: Monday, August 14, 2017 12:56 - CONCLUSION: Interstitial fossa is in both lungs without cardiomegaly. Noncardiogenic process is suspected. Alan Mart MD FACR Chest CT 08/14/17 0000 Signed Impressions: Service Date/Time: Monday, August 14, 2017 13:51 - CONCLUSION: Patchy groundglass opacity scattered throughout both lungs without pleural effusion. There is no pneumothorax. There is no adenopathy. Considerations include both inflammatory process as well as drug induced. Alan Mart MD FACR Caprini VTE Risk Assessment Caprini VTE Risk Assessment: Mod/High Risk (score >= 2) Caprini Risk Assessment Model Point Value = 1 Point Value = 2 Point Value = 3 Point Value = 5 Age 41-60 Minor surgery BMI > 25 kg/m2 Swollen legs Varicose veins or History of unexplained or recurrent spontaneous Oral contraceptives or hormone replacement Sepsis (< 1 month) Serious lung disease, including pneumonia (< 1 month) Abnormal pulmonary function Acute myocardial infarction Congestive heart failure (< 1 month) History of inflammatory bowel disease Medical patient at bed rest Age 61-74 Arthroscopic surgery Major open surgery (> 45 min) Laparoscopic surgery (> 45 min) Malignancy Confined to bed (> 72 hours) Immobilizing plaster cast Central venous access Age >= 75 History of VTE Family history of VTE Factor V Leiden Prothrombin [id number] Lupus anticoagulant Anticardiolipin antibodies Elevated serum homocysteine Heparin-induced thrombocytopenia Other congenital or acquired thrombophilia Stroke (< 1 month) Elective arthroplasty Hip, pelvis, or leg fracture Acute spinal cord injury (< 1 month) Prophylaxis Regimen Total Risk Factor Score Risk Level Prophylaxis Regimen 0-1 Low Early ambulation 2 Moderate Order ONE of the following: *Sequential Compression Device (SCD) *Heparin 5000 units SQ BID 3-4 Higher Order ONE of the following medications: *Heparin 5000 units SQ TID *Enoxaparin/Lovenox 40 mg SQ daily (WT < 150 kg, CrCl > 30 mL/min) *Enoxaparin/Lovenox 30 mg SQ daily (WT < 150 kg, CrCl > 10-29 mL/min) *Enoxaparin/Lovenox 30 mg SQ BID (WT < 150 kg, CrCl > 30 mL/min) AND/OR *Sequential Compression Device (SCD) 5 or more Highest Order ONE of the following medications: *Heparin 5000 units SQ TID (Preferred with Epidurals) *Enoxaparin/Lovenox 40 mg SQ daily (WT < 150 kg, CrCl > 30 mL/min) *Enoxaparin/Lovenox 30 mg SQ daily (WT < 150 kg, CrCl > 10-29 mL/min) *Enoxaparin/Lovenox 30 mg SQ BID (WT < 150 kg, CrCl > 30 mL/min) AND *Sequential Compression Device (SCD) Assessment and Plan Assessment and Plan 1. Dyspnea/hypoxia: Secondary to pneumonia versus pneumonitis. Continue antibiotics, steroids, nebulizer treatments. Most likely noninfectious, will cover empirically with antibiotics and evaluate for viral causes including influenza. 2. Hodgkin's lymphoma: Most recent chemotherapy was Monday. Consult oncology. 3. Sepsis: Secondary to respiratory source. Patient presented with tachypnea, tachycardia. She has had fever at home. Blood cultures are pending. Continue antibiotics. 4. DVT prophylaxis: Lovenox. Guicho Saavedra MD Aug 14, 2017 18:25
[2017-08-14 20:00] VITALS: BP 151/72; PULSE 108; PULSE 111; RESP 20; TEMP 99.4; O2SAT 100
[2017-08-14] MEDS: RESP: ALBUTEROL 2.5 MG/IPRATROPIUM 0.5 MG NEB (SCH) NEB (20:00)
[2017-08-14 20:01] VITALS: O2SAT 93
[2017-08-14] MEDS ORDERED: oxyCODONE/ACETAMINOPHEN 5 MG/325 MG TAB PO ONE (20:45)
[2017-08-14] MEDS ORDERED: methylPREDNISolone SOD SUCC 125 MG/2 ML VIAL IV PUSH SCH (21:00)
[2017-08-14] MEDS: SODIUM CHLORIDE 0.9% FLUSH 10 ML FLUSH IV FLUSH SCH (23:06)
[2017-08-14] MEDS: methylPREDNISolone SOD SUCC 125 MG/2 ML VIAL IV PUSH SCH (23:06)
[2017-08-15] VITALS (12 sets, daily range): BP systolic 140–159; BP diastolic 68–93; PULSE 90–109; RESP 16–20; TEMP 97.8–98.7; O2SAT 89–96
[2017-08-15] MEDS: RESP: ALBUTEROL 2.5 MG/3 ML NEB (PRN) NEB (01:52)
[2017-08-15] MEDS: SODIUM CHLOR 0.9% 1000 ML INJ 1,000 ML IV SCH ×3 (02:14→21:27)
[2017-08-15] MEDS: methylPREDNISolone SOD SUCC 125 MG/2 ML VIAL IV PUSH SCH ×3 (05:56→21:26)
--- NOTE | 2017-08-15 07:58 | MB ---
cc: LUIS CALLOWAY DATE OF CONSULTATION 08/14/2017 CHIEF COMPLAINT: Patient with Hodgkin's disease receiving immune therapy with nivolumab admitted with progressive respiratory distress. PATIENT PROFILE: The patient is a 52 year old female. She is single. She has no children. She is currently living alone. Due to her illness, she is unable to work. In the past, she had worked at the [facility]. She smokes an occasional cigarette. In the past, she smoked a pack of cigarettes per day. She has a few beers each day. HISTORY OF PRESENT ILLNESS: Adriana Garcia is a 52 year old female who was diagnosed with Hodgkin's disease approximately eleven years ago. She received ABVD chemotherapy and radiation. She has had multiple relapses. She has undergone two bone marrow transplants. She is currently on nivolumab which she receives every two weeks. She was seen last Monday and was supposed to receive treatment with nivolumab. She had evidence of a respiratory tract infection with a cough, low-grade fever and ronchi on exam of the lungs. She underwent a nasal test for influenza, which was negative. She was given Levaquin and she did not improve. She has continued to worsen with progressive shortness of breath, cough and low-grade intermittent fevers on occasion as high as 101. This is now her second visit to the emergency room. She feels that she is worse and it is hard for her to move about her room due to shortness of breath. PAST SURGICAL HISTORY: 1. Partial hysterectomy. 2. Multiple biopsies confirming Hodgkin's disease. 3. Bone marrow transplants times two. 4. Hernia repair 2001. PAST MEDICAL HISTORY: 1. Hodgkin's disease diagnosed I believe dating back to 2006. She was treated with six cycles of ABVD chemotherapy and involved field radiation. She had a relapse in June of 2008 and received chemotherapy and a bone marrow transplant. She then relapsed a second time in 2010 and has had multiple other relapses and multiple treatments with chemotherapy, brentuximab, a second transplant in January of 2015 and most recently nivolumab, which has been administered every two weeks. At the present time, the only site of persistent disease is in the middle mediastinum and right hilum. She was scheduled next week to begin radiation therapy to this area in the hope this would eliminate the only area where there was visible active disease. MEDICATIONS PRIOR TO ADMISSION: 1. Albuterol. 2. Ativan. 3. Percocet. 4. Ambien. ALLERGIES: NO ALLERGIES THAT I AM AWARE OF. FAMILY HISTORY: Noncontributory. REVIEW OF SYSTEMS: No change in vision or hearing. No chest pain other than chest tightness associated with her breathing. Respiratory - shortness of breath, cough and fever. GI - Diarrhea two or three times per day. Occasional nausea. - No dysuria. Frequent urination. Skin - mild itching. Neurologic - no weakness. Slight tingling and numbness in the toes from previous chemotherapy. Psychiatric - very mild depression. PHYSICAL EXAMINATION: GENERAL: The physical examination reveals a female who is short of breath with mild exertion. She is on six liters oxygen at 94%. Blood pressure is 130/70, respiratory rate is 20, pulse 110, afebrile. HEAD: Head is normocephalic. Sclerae and conjunctivae are normal. Oropharynx is unremarkable. LYMPHATIC: There is no cervical, supraclavicular, axillary or inguinal adenopathy. HEART: Regular rhythm, rate 110. LUNGS: Diffuse dry crackles throughout. ABDOMEN: Soft. No enlargement of liver or spleen. EXTREMITIES: Trace edema. MUSCULOSKELETAL: No bone pain. NEUROLOGIC: No focal weakness. Cognition normal. SKIN: Normal. LABORATORY STUDIES: On 08/14, hemoglobin 12.9, white count 9000, platelets 87,000 with 87% neutrophils and 6% lymphocytes. Lytes, BUN and creatinine and liver functions notable for a slight elevation in the AST to 66, ALT 57 and alk phos 133. The albumin is 3.1. Creatinine is 0.78. A chest x-ray as well as a CT scan of the thorax was done. I have reviewed both. The CT scan of the thorax is very telling. There is extensive patchy ground glass opacities scattered throughout both lungs. There is no pleural effusion. There is no adenopathy. IMPRESSION/ASSESSMENT: The patient is a 52 year old female who has Hodgkin's disease with multiple relapses in excess of ten years. She now has a progressive patchy ground glass infiltrate in both lungs which has not responded to Levaquin. The radiographic appearance is most consistent with an inflammatory process, possibly from nivolumab. It does not have a characteristic appearance of a bacterial pneumonia. A viral infection could also cause a similar appearance. PLAN: 1. The patient will be treated with Cefepime, although it is unlikely she has a bacterial infection. 2. High-dose steroids. 3. I have contacted the laboratory and have requested viral cultures to rule out viral illness such as CMV, Coxsakie, et cetera. 4. She will require hospitalization and close scrutiny as the inflammatory process in the lungs can evolve quickly; hopefully, it will be steroid-responsive. If there is continued deterioration, will ask infectious disease to see. At the moment, I believe the mainstay of treatment will be steroids. 5. She was scheduled for radiation therapy to the hilum and mediastinal area, fortunately this has not yet taken place, and will not take place until the current issues have resolved. MD CIARA Leary/alyse /4:10 PM /7:34 AM KEHINDE
[2017-08-15] MEDS: RESP: ALBUTEROL 2.5 MG/IPRATROPIUM 0.5 MG NEB (SCH) NEB ×4 (08:04→19:38)
[2017-08-15] MEDS: SODIUM CHLORIDE 0.9% FLUSH 10 ML FLUSH IV FLUSH SCH ×2 (08:22→21:26)
[2017-08-15 08:32] LABS: AUTOMATED NEUTROPHIL # 7.5 TH/MM3 (1.8-7.7); HEMATOCRIT 38.4 % (35.0-46.0); HEMOGLOBIN 13.1 GM/DL (11.6-15.3); LYMPH % 7.6 % (9.0-44.0); LYMPHOCYTE # 0.6 TH/MM3 (1.0-4.8); MEAN CELL VOLUME 109.4 FL (80.0-100.0); MEAN CORPUSCULAR HEMOGLOBIN 37.4 PG (27.0-34.0); MEAN CORPUSCULAR HGB CONC 34.2 % (32.0-36.0); MEAN PLATELET VOLUME 8.6 FL (7.0-11.0); MONO % 3.4 % (0.0-8.0); MONOCYTE # 0.3 TH/MM3 (0-0.9); PLATELET COUNT 85 TH/MM3 (150-450); RED BLOOD COUNT 3.51 MIL/MM3 (4.00-5.30); RED CELL DISTRIBUTION WIDTH 14.3 % (11.6-17.2); WHITE BLOOD COUNT 8.5 TH/MM3 (4.0-11.0)
[2017-08-15] MEDS: CEFEPIME INJ 2,000 MG in SODIUM CHLORIDE 0.9% INJ 100 ML IV SCH ×5 (08:37→23:51)
[2017-08-15 09:01] LABS: BICARBONATE 27.8 MEQ/L (21.0-32.0); CREATININE 0.78 MG/DL (0.50-1.00)
[2017-08-15] MEDS ORDERED: ONDANSETRON HCL 4 MG/2 ML VIAL IV PUSH PRN (09:30)
[2017-08-15] MEDS ORDERED: POTASSIUM CHLORIDE 10 MEQ CONTROLLED RELEASE TAB PO ONE (09:30)
[2017-08-15] MEDS ORDERED: ACETAMINOPHEN 325 MG TAB PO PRN (09:30)
--- NOTE | 2017-08-15 09:34 | HHI.PR ---
Subjective Remarks Follow-up sepsis/pneumonia versus pneumonitis/Hodgkin's lymphoma 08/15/17-patient seen and examined, currently afebrile, continued to report some shortness of breath. Denies any chest pain Objective Vitals Vital Signs Date Time Temp Pulse Resp B/P (MAP) Pulse Ox O2 Delivery O2 Flow Rate FiO2 08/15/17 08:07 98.6 99 18 146/84 (104) 96 08/15/17 08:06 92 Nasal Cannula 6.00 08/15/17 04:00 98 08/15/17 04:00 98.0 104 18 159/80 (106) 91 08/15/17 01:55 93 Nasal Cannula 6.00 08/15/17 00:00 106 08/15/17 00:00 98.3 101 18 140/68 (92) 94 08/14/17 20:01 93 Nasal Cannula 6.00 08/14/17 20:00 Nasal Cannula 6.00 Humidified 08/14/17 20:00 99.4 108 20 151/72 (98) 100 08/14/17 20:00 111 08/14/17 17:36 99.7 109 20 147/70 (95) 90 08/14/17 15:47 109 21 136/70 (92) 94 Nasal Cannula 6.00 08/14/17 12:30 93 Nasal Cannula 6.00 08/14/17 12:24 38 93 Nasal Cannula 6.00 08/14/17 12:09 97.2 117 26 137/69 (91) 82 Room Air I/O 08/14/17 08/14/17 08/14/17 08/15/17 08/15/17 08/15/17 07:00 15:00 23:00 07:00 15:00 23:00 Intake Total 100 ml 520 ml Balance 100 ml 520 ml Intake Oral 520 ml IV Total 100 ml # Voids 2 # Bowel Movements 1 Result Diagram: 08/15/17 0721 08/15/17 0721 Imaging Last Impressions Chest X-Ray 08/14/17 1229 Signed Impressions: Service Date/Time: Monday, August 14, 2017 12:56 - CONCLUSION: Interstitial fossa is in both lungs without cardiomegaly. Noncardiogenic process is suspected. Alan Mart MD FACR Chest CT 08/14/17 0000 Signed Impressions: Service Date/Time: Monday, August 14, 2017 13:51 - CONCLUSION: Patchy groundglass opacity scattered throughout both lungs without pleural effusion. There is no pneumothorax. There is no adenopathy. Considerations include both inflammatory process as well as drug induced. Alan Mart MD FACR Objective Remarks GENERAL: NAD SKIN: Warm and dry. HEAD: Normocephalic. EYES: No scleral icterus. No injection or drainage. NECK: Supple, trachea midline. No JVD or lymphadenopathy. CARDIOVASCULAR: Regular rate and rhythm without murmurs, gallops, or rubs. RESPIRATORY: Breath sounds decrease bilaterally. No accessory muscle use. GASTROINTESTINAL: Abdomen soft, non-tender, nondistended. MUSCULOSKELETAL: No cyanosis, or edema. BACK: Nontender without obvious deformity. No CVA tenderness. A/P Problem List: (1) Sepsis ICD Code: A41.9 - Sepsis, unspecified organism (2) Cough ICD Code: R05 - Cough Status: Acute (3) Interstitial pneumonitis ICD Code: J84.89 - Other specified interstitial pulmonary diseases Status: Acute (4) Respiratory distress ICD Code: R06.03 - Acute respiratory distress Status: Acute (5) Hypoxia ICD Code: R09.02 - Hypoxemia Status: Acute Assessment and Plan 52-year-old female with Sepsis Currently on cefepime pending culture reports Pneumonia versus pneumonitis Rule out viral etiology with CMV, Coxsakie Continue with cefepime pending culture report Continue with Solu-Medrol every 8 hour, DuoNeb when necessary Maintain oxygen saturation above 92% Hodgkin's lymphoma Appreciate input from oncology Radiation per radiation oncology DVT prophylaxis: Tony Madden MD Aug 15, 2017 09:34
--- NOTE | 2017-08-15 12:00 | PD.ONC.PN ---
Subjective Subjective Remarks Afebrile overnight. Patient visibly dyspneic with speech reports she feels ok as long as she remains still with her oxygen on. she does not report improvement in her symptoms since yesterday. Objective Data Date Time Temp Pulse Resp B/P (MAP) Pulse Ox O2 Delivery O2 Flow Rate FiO2 08/15/17 08:07 98.6 99 18 146/84 (104) 96 08/15/17 08:06 92 Nasal Cannula 6.00 08/15/17 04:00 98 08/15/17 04:00 98.0 104 18 159/80 (106) 91 08/15/17 01:55 93 Nasal Cannula 6.00 08/15/17 00:00 106 08/15/17 00:00 98.3 101 18 140/68 (92) 94 08/14/17 20:01 93 Nasal Cannula 6.00 08/14/17 20:00 Nasal Cannula 6.00 Humidified 08/14/17 20:00 99.4 108 20 151/72 (98) 100 08/14/17 20:00 111 08/14/17 17:36 99.7 109 20 147/70 (95) 90 08/14/17 15:47 109 21 136/70 (92) 94 Nasal Cannula 6.00 08/14/17 12:30 93 Nasal Cannula 6.00 08/14/17 12:24 38 93 Nasal Cannula 6.00 08/14/17 12:09 97.2 117 26 137/69 (91) 82 Room Air 08/15/17 08/15/17 08/15/17 06:59 14:59 22:59 Intake Total 520 ml Balance 520 ml Result Diagram: 08/15/1721 08/15/17 0721 Laboratory Results Laboratory Tests Test 08/14/17 12:30 08/14/17 12:40 08/14/17 13:20 08/15/17 07:21 Blood Gas Puncture Site RT RADIAL Blood Gas Patient Temperature 98.6 Blood Gas HCO3 26 mmol/L Blood Gas Base Excess 3.0 mmol/L Blood Gas Oxygen Saturation 89 % Arterial Blood pH 7.50 Arterial Blood Partial Pressure CO2 34 mmHg Arterial Blood Partial Pressure O2 58 mmHG Arterial Blood Oxygen Content 15.7 Vol % Arterial Blood Carboxyhemoglobin 1.7 % Arterial Blood Methemoglobin 0.7 % Blood Gas Hemoglobin 12.6 G/DL Oxygen Delivery Device NASAL CANNULA Blood Gas Liter Flow 6 L/M White Blood Count 9.0 TH/MM3 8.5 TH/MM3 Red Blood Count 3.55 MIL/MM3 3.51 MIL/MM3 Hemoglobin 12.9 GM/DL 13.1 GM/DL Hematocrit 38.9 % 38.4 % Mean Corpuscular Volume 109.7 FL 109.4 FL Mean Corpuscular Hemoglobin 36.2 PG 37.4 PG Mean Corpuscular Hemoglobin Concent 33.0 % 34.2 % Red Cell Distribution Width 14.6 % 14.3 % Platelet Count 87 TH/MM3 85 TH/MM3 Mean Platelet Volume 8.7 FL 8.6 FL Neutrophils (%) (Auto) 87.3 % 89.0 % Lymphocytes (%) (Auto) 6.7 % 7.6 % Monocytes (%) (Auto) 5.9 % 3.4 % Eosinophils (%) (Auto) 0.0 % 0.0 % Basophils (%) (Auto) 0.1 % 0.0 % Neutrophils # (Auto) 7.9 TH/MM3 7.5 TH/MM3 Lymphocytes # (Auto) 0.6 TH/MM3 0.6 TH/MM3 Monocytes # (Auto) 0.5 TH/MM3 0.3 TH/MM3 Eosinophils # (Auto) 0.0 TH/MM3 0.0 TH/MM3 Basophils # (Auto) 0.0 TH/MM3 0.0 TH/MM3 CBC Comment AUTO DIFF AUTO DIFF Differential Comment AUTO DIFF CONFIRMED AUTO DIFF CONFIRMED Platelet Estimate LOW LOW Platelet Morphology Comment NORMAL NORMAL Blood Urea Nitrogen 5 MG/DL 6 MG/DL Creatinine 0.78 MG/DL 0.78 MG/DL Random Glucose 122 MG/DL 143 MG/DL Total Protein 7.9 GM/DL Albumin 3.1 GM/DL Calcium Level 8.9 MG/DL 9.0 MG/DL Alkaline Phosphatase 133 U/L Aspartate Amino Transf (AST/SGOT) 66 U/L Alanine Aminotransferase (ALT/SGPT) 57 U/L Total Bilirubin 0.5 MG/DL Sodium Level 137 MEQ/L 137 MEQ/L Potassium Level 3.7 MEQ/L 3.2 MEQ/L Chloride Level 101 MEQ/L 101 MEQ/L Carbon Dioxide Level 28.2 MEQ/L 27.8 MEQ/L Anion Gap 8 MEQ/L 8 MEQ/L Estimat Glomerular Filtration Rate 94 ML/MIN 94 ML/MIN Lactic Acid Level 2.0 mmol/L Urine Color YELLOW Urine Turbidity CLEAR Urine pH 6.5 Urine Specific [place] 1.005 Urine Protein 30 mg/dL Urine Glucose (UA) NEG mg/dL Urine Ketones NEG mg/dL Urine Occult Blood TRACE Urine Nitrite NEG Urine Bilirubin NEG Urine Urobilinogen LESS THAN 2.0 MG/DL Urine Leukocyte Esterase NEG Urine RBC 1 /hpf Urine WBC 1 /hpf Urine Squamous Epithelial Cells 1 /hpf Urine Transitional Epithelial Cells <1 /hpf Microscopic Urinalysis Comment CATH-CULT NOT IND Culture Results Microbiology Date/Time Source Procedure Growth Status 08/14/17 12:45 Blood Peripheral Aerobic Blood Culture - Preliminary NO GROWTH IN 1 DAY Resulted 08/14/17 12:45 Blood Peripheral Anaerobic Blood Culture - Preliminary NO GROWTH IN 1 DAY Resulted 08/14/17 12:40 Blood Peripheral Aerobic Blood Culture - Preliminary NO GROWTH IN 1 DAY Resulted 08/14/17 12:40 Blood Peripheral Anaerobic Blood Culture - Preliminary NO GROWTH IN 1 DAY Resulted Imaging Studies Last 24 hours Impressions Chest X-Ray 08/14/17 1229 Signed Impressions: Service Date/Time: Monday, August 14, 2017 12:56 - CONCLUSION: Interstitial fossa is in both lungs without cardiomegaly. Noncardiogenic process is suspected. Alan Mart MD FACR Administered Medications Medications (Trade) Dose Ordered Sig/Ronaldo Route PRN Reason Start Time Stop Time Status Last Admin Dose Admin Cefepime HCl 2000 mg/Sodium Chloride 100 ml @ 200 mls/hr Q8H IV 08/14/17 16:00 08/15/17 08:37 Sodium Chloride 1,000 ml @ 100 mls/hr Q10H IV 08/14/17 15:00 08/15/17 08:37 Sodium Chloride (NS Flush) 2 ml BID IV FLUSH 08/14/17 21:00 08/15/17 08:22 Enoxaparin Sodium (Lovenox Inj) 40 mg Q24H SQ 08/14/17 16:00 08/14/17 17:07 Methylprednisolone Sodium Succinate (SoluMEDROL INJ) 60 mg Q8HR IV PUSH 08/14/17 22:00 08/15/17 05:56 Albuterol/ Ipratropium (Duoneb Neb) 1 ampule QID NEB NEB 08/14/17 20:00 08/15/17 11:44 Albuterol Sulfate (Albuterol Neb) 2.5 mg Q2HR NEB PRN NEB DYSPNEA 08/14/17 18:30 08/15/17 01:52 Objective Remarks GENERAL: dyspneic female, sitting up in bed. on O2 via NC, 6L SKIN: Warm and dry. HEAD: Normocephalic. EYES: No injection or drainage. NECK: Supple, trachea midline. CARDIOVASCULAR: +S1/S2, mild tachycardia RESPIRATORY: diminished at bases, diminished inspiratory and expiratory breath sounds, scattered wheeze. GASTROINTESTINAL: Abdomen soft, non-tender, nondistended. EXTREMITIES: No cyanosis NEUROLOGICAL: No obvious focal deficit. Awake, alert, and oriented x3. Assessment/Plan Assessment 52y/o with h/o Hodgkin's disease admitted with dyspnea. Plan 1. In terms of this patient's Hodgkin's disease, patient has very little visible disease left and is doing very well. 2. dyspnea: likely pneumonitis related to the Nivolumab. the treatment would be to continue steroids and expect improvement in the coming days. we do not think this is bacterial infection as the patient does not have an elevated white blood cell count or fever. viral panel has been obtained for thoroughness as a viral infection could appear similarly. Attending Statement The exam, history, and the medical decision-making described in the above note were completed with the assistance of the mid-level provider. I reviewed and agree with the findings presented. I attest that I had a [id number] encounter with the patient on the same day, and personally performed and documented my assessment and findings in the medical record. She remains ill with sob with any movement and lungs demonstrate dry rales. Will continue high dose steroids and follow clinical course. Lack of fever more consistent with a non infectious pneumonitis with viral cultures pending. Julieta Mandel Aug 15, 2017 12:00 Jono Robles MD Aug 15, 2017 20:40
[2017-08-15] MEDS: ENOXAPARIN SODIUM 40 MG/0.4 ML SYRINGE SQ SCH (16:13)
[2017-08-15] MEDS ORDERED: TEMAZEPAM 15 MG CAP PO PRN (21:00)
[2017-08-16] VITALS (13 sets, daily range): BP systolic 127–157; BP diastolic 81–97; PULSE 89–114; RESP 16–20; TEMP 98–99.1; O2SAT 91–98
[2017-08-16] MEDS: RESP: ALBUTEROL 2.5 MG/3 ML NEB (PRN) NEB (04:34)
[2017-08-16] MEDS: methylPREDNISolone SOD SUCC 125 MG/2 ML VIAL IV PUSH SCH ×3 (05:04→23:00)
[2017-08-16] MEDS: SODIUM CHLOR 0.9% 1000 ML INJ 1,000 ML IV SCH (05:28)
[2017-08-16 06:34] LABS: AUTOMATED NEUTROPHIL # 8.2 TH/MM3 (1.8-7.7); BASOPHIL % 0.1 % (0.0-2.0); HEMATOCRIT 34.3 % (35.0-46.0); HEMOGLOBIN 11.6 GM/DL (11.6-15.3); LYMPH % 8.2 % (9.0-44.0); LYMPHOCYTE # 0.8 TH/MM3 (1.0-4.8); MEAN CELL VOLUME 109.1 FL (80.0-100.0); MEAN CORPUSCULAR HEMOGLOBIN 36.7 PG (27.0-34.0); MEAN CORPUSCULAR HGB CONC 33.7 % (32.0-36.0); MEAN PLATELET VOLUME 8.8 FL (7.0-11.0); MONO % 6.2 % (0.0-8.0); MONOCYTE # 0.6 TH/MM3 (0-0.9); NEUT % 85.5 % (16.0-70.0); PLATELET COUNT 75 TH/MM3 (150-450); RED BLOOD COUNT 3.15 MIL/MM3 (4.00-5.30); RED CELL DISTRIBUTION WIDTH 14.7 % (11.6-17.2); WHITE BLOOD COUNT 9.6 TH/MM3 (4.0-11.0)
[2017-08-16 06:54] LABS: BICARBONATE 24.2 MEQ/L (21.0-32.0); CALCIUM 8.2 MG/DL (8.5-10.1); CREATININE 0.56 MG/DL (0.50-1.00)
[2017-08-16 08:09] LABS: BANDS 2 % (0-6); CORRECTED NUCLEATED RBC 1 /100 WBC (0-0); LYMPHOCYTES 6 % (9-44); MONOCYTES 7 % (0-8); NEUTROPHIL # MANUAL DIFF 8.4 TH/MM3 (1.8-7.7); NUCLEATED RED BLOOD CELL 1 (0-0); POLYS (SEG NEUTROPHILS) 85 % (16-70)
--- NOTE | 2017-08-16 08:16 | PD.ONC.PN ---
Subjective Subjective Remarks Afebrile overnight. Patient resting in bed. Breathing no better and no worse today. remains on 6L O2. Pulse Oximetry at 97% during interview. Objective Data Date Time Temp Pulse Resp B/P (MAP) Pulse Ox O2 Delivery O2 Flow Rate FiO2 08/16/17 05:01 98.4 98 18 150/86 (107) 94 08/16/17 04:36 95 Nasal Cannula 6.00 08/15/17 23:50 98.7 100 18 147/84 (105) 92 08/15/17 21:00 Nasal Cannula 6.00 Humidified 08/15/17 21:00 95 08/15/17 20:00 97.8 90 16 150/92 (111) 92 08/15/17 19:39 93 Nasal Cannula 6.00 08/15/17 17:36 Nasal Cannula 6.00 08/15/17 17:36 98.7 103 20 159/93 (115) 92 08/15/17 15:22 91 Nasal Cannula 6.00 08/15/17 12:07 98.4 109 18 145/68 (93) 89 08/16/17 08/16/17 08/16/17 07:00 15:00 23:00 Intake Total 1100 ml Balance 1100 ml Result Diagram: 08/16/17 0500 08/16/17 0500 Laboratory Results Laboratory Tests Test 08/16/17 05:00 White Blood Count 9.6 TH/MM3 Red Blood Count 3.15 MIL/MM3 Hemoglobin 11.6 GM/DL Hematocrit 34.3 % Mean Corpuscular Volume 109.1 FL Mean Corpuscular Hemoglobin 36.7 PG Mean Corpuscular Hemoglobin Concent 33.7 % Red Cell Distribution Width 14.7 % Platelet Count 75 TH/MM3 Mean Platelet Volume 8.8 FL Neutrophils (%) (Auto) 85.5 % Lymphocytes (%) (Auto) 8.2 % Monocytes (%) (Auto) 6.2 % Eosinophils (%) (Auto) 0.0 % Basophils (%) (Auto) 0.1 % Neutrophils # (Auto) 8.2 TH/MM3 Lymphocytes # (Auto) 0.8 TH/MM3 Monocytes # (Auto) 0.6 TH/MM3 Eosinophils # (Auto) 0.0 TH/MM3 Basophils # (Auto) 0.0 TH/MM3 CBC Comment AUTO DIFF Differential Total Cells Counted 100 Neutrophils % (Manual) 85 % Band Neutrophils % 2 % Lymphocytes % 6 % Monocytes % 7 % Neutrophils # (Manual) 8.4 TH/MM3 Nucleated Red Blood Cells 1 /100 WBC Differential Comment FINAL DIFF MANUAL Platelet Estimate LOW Platelet Morphology Comment NORMAL Blood Urea Nitrogen 10 MG/DL Creatinine 0.56 MG/DL Random Glucose 125 MG/DL Calcium Level 8.2 MG/DL Sodium Level 138 MEQ/L Potassium Level 3.8 MEQ/L Chloride Level 104 MEQ/L Carbon Dioxide Level 24.2 MEQ/L Anion Gap 10 MEQ/L Estimat Glomerular Filtration Rate 138 ML/MIN Culture Results Microbiology Date/Time Source Procedure Growth Status 08/14/17 12:45 Blood Peripheral Aerobic Blood Culture - Preliminary NO GROWTH IN 1 DAY Resulted 08/14/17 12:45 Blood Peripheral Anaerobic Blood Culture - Preliminary NO GROWTH IN 1 DAY Resulted 08/14/17 12:40 Blood Peripheral Aerobic Blood Culture - Preliminary NO GROWTH IN 1 DAY Resulted 08/14/17 12:40 Blood Peripheral Anaerobic Blood Culture - Preliminary NO GROWTH IN 1 DAY Resulted Administered Medications Medications (Trade) Dose Ordered Sig/Ronaldo Route PRN Reason Start Time Stop Time Status Last Admin Dose Admin Cefepime HCl 2000 mg/Sodium Chloride 100 ml @ 200 mls/hr Q8H IV 08/14/17 16:00 08/15/17 23:51 Sodium Chloride 1,000 ml @ 100 mls/hr Q10H IV 08/14/17 15:00 08/16/17 05:28 Sodium Chloride (NS Flush) 2 ml BID IV FLUSH 08/14/17 21:00 08/15/17 21:26 Enoxaparin Sodium (Lovenox Inj) 40 mg Q24H SQ 08/14/17 16:00 08/15/17 16:13 Methylprednisolone Sodium Succinate (SoluMEDROL INJ) 60 mg Q8HR IV PUSH 08/14/17 22:00 08/16/17 05:04 Albuterol/ Ipratropium (Duoneb Neb) 1 ampule QID NEB NEB 08/14/17 20:00 08/15/17 19:38 Albuterol Sulfate (Albuterol Neb) 2.5 mg Q2HR NEB PRN NEB DYSPNEA 08/14/17 18:30 08/16/17 04:34 Objective Remarks GENERAL: Middle aged female, sitting up in bed on O2 via NC. SKIN: Warm and dry. HEAD: Normocephalic. EYES: No injection or drainage. NECK: Supple, trachea midline. CARDIOVASCULAR: mildly tachycardic rate, regular rhythm. RESPIRATORY: diminished inspiratory and expiratory sounds throughout, scattered wheeze. GASTROINTESTINAL: Abdomen soft, non-tender, nondistended. EXTREMITIES: No cyanosis NEUROLOGICAL: awake and alert, normal speech. Assessment/Plan Assessment 52y/o with h/o Hodgkin's disease admitted with suspected pneumonitis d/t Nivolumab Plan 1. recommend continuing steroids. usually steroids take several days to start working in cases of pneumonitis. patient appears less visibly dyspneic today and pulse-ox maintaining in upper 90s. Attending Statement The exam, history, and the medical decision-making described in the above note were completed with the assistance of the mid-level provider. I reviewed and agree with the findings presented. I attest that I had a [id number] encounter with the patient on the same day, and personally performed and documented my assessment and findings in the medical record. clinically a little better today but too early to tell Hopefully will see diminishing need for Oxygen and eventual improvement of the ground glass infiltrates which are visible on the ct of thorax. exam unchanged from yesterday except breathing a little less labored. Julieta Mandel Aug 16, 2017 08:16 Jono Robles MD Aug 16, 2017 22:05
[2017-08-16] MEDS: RESP: ALBUTEROL 2.5 MG/IPRATROPIUM 0.5 MG NEB (SCH) NEB ×4 (08:48→20:55)
[2017-08-16] MEDS: SODIUM CHLORIDE 0.9% FLUSH 10 ML FLUSH IV FLUSH SCH ×2 (09:00→23:00)
--- NOTE | 2017-08-16 10:10 | RADRPT ---
EXAM DATE/TIME: 08/16/2017 09:11 [facility] COMPARISON: No previous studies available for comparison. INDICATIONS : Productive cough and short of breath. MEDICAL HISTORY : Throat Ca. SURGICAL HISTORY : None. ENCOUNTER: Subsequent ACUITY: 4 - 6 days PAIN SCORE: 0/10 LOCATION: Bilateral chest FINDINGS: PA and lateral views of the chest demonstrate the lungs to be symmetrically aerated without evidence of mass, infiltrate or effusion. Left subclavian [id number] with tip in good position. The cardiom ediastinal contours are unremarkable. Osseous structures are intact. CONCLUSION: 1. No acute cardiopulmonary disease. Sergio Covarrubias MD on August 16, 2017 at 10:08 Board Certified Radiologist. This report was verified electronically.
[2017-08-16] MEDS: CEFEPIME INJ 2,000 MG in SODIUM CHLORIDE 0.9% INJ 100 ML IV SCH ×3 (10:15→23:03)
--- NOTE | 2017-08-16 15:09 | HHI.PR ---
Subjective Remarks Follow-up for drug-induced pneumonitis. Patient is currently doing well. No fever or chills. She feels that her breathing is getting better. Objective Vitals Vital Signs Date Time Temp Pulse Resp B/P (MAP) Pulse Ox O2 Delivery O2 Flow Rate FiO2 08/16/17 12:50 98.0 97 18 156/96 (116) 98 08/16/17 12:44 98 Nasal Cannula 4.00 08/16/17 10:09 98.4 114 20 154/88 (110) 94 08/16/17 10:09 Nasal Cannula 5.00 08/16/17 08:48 92 Nasal Cannula 6.00 08/16/17 05:01 98.4 98 18 150/86 (107) 94 08/16/17 04:36 95 Nasal Cannula 6.00 08/15/17 23:50 98.7 100 18 147/84 (105) 92 08/15/17 21:00 Nasal Cannula 6.00 Humidified 08/15/17 21:00 95 08/15/17 20:00 97.8 90 16 150/92 (111) 92 08/15/17 19:39 93 Nasal Cannula 6.00 08/15/17 17:36 Nasal Cannula 6.00 08/15/17 17:36 98.7 103 20 159/93 (115) 92 08/15/17 15:22 91 Nasal Cannula 6.00 I/O 08/15/17 08/15/17 08/15/17 08/16/17 08/16/17 08/16/17 07:00 15:00 23:00 07:00 15:00 23:00 Intake Total 520 ml 1000 ml 1100 ml Output Total 400 ml Balance 520 ml 600 ml 1100 ml Intake Oral 520 ml 800 ml IV Total 200 ml 1100 ml Output Urine Total 400 ml # Voids 2 3 # Bowel Movements 1 1 Result Diagram: 08/16/17 0500 08/16/17 0500 Imaging Last Impressions Chest X-Ray 08/16/17 0600 Signed Impressions: Service Date/Time: Wednesday, August 16, 2017 09:11 - CONCLUSION: 1. No acute cardiopulmonary disease. Sergio Covarrubias MD Chest CT 08/14/17 0000 Signed Impressions: Service Date/Time: Monday, August 14, 2017 13:51 - CONCLUSION: Patchy groundglass opacity scattered throughout both lungs without pleural effusion. There is no pneumothorax. There is no adenopathy. Considerations include both inflammatory process as well as drug induced. Alan Mart MD FACR Objective Remarks GENERAL: Alert, NAD. SKIN: Warm and dry. HEAD: Normocephalic. EYES: No scleral icterus. No injection or drainage. NECK: Supple, trachea midline. No JVD or lymphadenopathy. CARDIOVASCULAR: Regular rate and rhythm without murmurs, gallops, or rubs. RESPIRATORY: Moderate breath sounds, diffuse crackles noted. GASTROINTESTINAL: Abdomen soft, non-tender, nondistended. MUSCULOSKELETAL: No cyanosis, or edema. BACK: Nontender without obvious deformity. No CVA tenderness. Procedures None A/P Problem List: (1) Sepsis ICD Code: A41.9 - Sepsis, unspecified organism (2) Cough ICD Code: R05 - Cough Status: Acute (3) Interstitial pneumonitis ICD Code: J84.89 - Other specified interstitial pulmonary diseases Status: Acute (4) Respiratory distress ICD Code: R06.03 - Acute respiratory distress Status: Acute (5) Hypoxia ICD Code: R09.02 - Hypoxemia Status: Acute Assessment and Plan Ms. 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 She is currently on Nivolumab which she received every 2 weeks. She was admitted on 08/14/2017 due to progressively worsening shortness of breath. CT chest shows diffuse ground glass opacity throughout both lungs. - Acute respiratory failure hypoxic - Probable drug-induced pneumonitis - Respiratory failure is likely due to pneumonitis. - Continue Solu-Medrol 60 mg every 8 hours. - Continue cefepime 2 g every 8 hours empirically. - We'll continue breathing treatments as well. Wean off O2 to keep O2 sat > 90%. - Appreciate oncology input. - Patient is eating and drinking well. We'll stop IV fluid. - Hodgkin's lymphoma - patient follows up with Dr. Robles. Full code. Lovenox. Discharge plan: Patient will likely need home Oxygen. We will do walk test when patient is close to be cleared for discharge. Niraj Maher DO Aug 16, 2017 3:09 pm
[2017-08-16] MEDS: ENOXAPARIN SODIUM 40 MG/0.4 ML SYRINGE SQ SCH (16:06)
[2017-08-17] VITALS (7 sets, daily range): BP systolic 140–154; BP diastolic 83–95; PULSE 56–101; RESP 16–20; TEMP 97.8–98.9; O2SAT 93–98
[2017-08-17] MEDS: methylPREDNISolone SOD SUCC 125 MG/2 ML VIAL IV PUSH SCH ×3 (04:58→21:30)
[2017-08-17] MEDS: RESP: ALBUTEROL 2.5 MG/3 ML NEB (PRN) NEB (05:42)
[2017-08-17] MEDS: SODIUM CHLORIDE 0.9% FLUSH 10 ML FLUSH IV FLUSH SCH ×2 (08:37→21:31)
[2017-08-17] MEDS: CEFEPIME INJ 2,000 MG in SODIUM CHLORIDE 0.9% INJ 100 ML IV SCH (08:37)
[2017-08-17] MEDS: RESP: ALBUTEROL 2.5 MG/IPRATROPIUM 0.5 MG NEB (SCH) NEB ×4 (09:10→20:10)
--- NOTE | 2017-08-17 11:40 | HHI.PR ---
Subjective Remarks Follow-up for drug-induced pneumonitis. Patient is currently doing well. She is upbeat and breathing well on 4 L of oxygen via nasal cannula. No fever or chills. Objective Vitals Vital Signs Date Time Temp Pulse Resp B/P (MAP) Pulse Ox O2 Delivery O2 Flow Rate FiO2 08/17/17 09:13 93 21 08/17/17 04:59 98.6 100 16 147/95 (112) 94 08/16/17 23:52 98.7 89 16 127/81 (96) 94 08/16/17 20:55 93 Nasal Cannula 4.00 08/16/17 20:05 91 Nasal Cannula 4.00 08/16/17 20:03 98.5 95 145/82 (103) 91 08/16/17 20:00 90 08/16/17 16:26 94 Nasal Cannula 4.00 08/16/17 16:13 99.1 95 18 157/97 (117) 96 08/16/17 12:50 98.0 97 18 156/96 (116) 98 08/16/17 12:44 98 Nasal Cannula 4.00 I/O 08/16/17 08/16/17 08/16/17 08/17/17 08/17/17 08/17/17 06:59 14:59 22:59 06:59 14:59 22:59 Intake Total 1100 ml 1680 ml Output Total 1400 ml Balance 1100 ml 280 ml Intake Oral 700 ml IV Total 1100 ml 980 ml Output Urine Total 1400 ml # Voids 1 Result Diagram: 08/16/17 0500 08/16/17 0500 Objective Remarks GENERAL: Alert, NAD. SKIN: Warm and dry. HEAD: Normocephalic. EYES: No scleral icterus. No injection or drainage. NECK: Supple, trachea midline. No JVD or lymphadenopathy. CARDIOVASCULAR: Regular rate and rhythm without murmurs, gallops, or rubs. RESPIRATORY: Moderate breath sounds, diffuse crackles noted. GASTROINTESTINAL: Abdomen soft, non-tender, nondistended. MUSCULOSKELETAL: No cyanosis, or edema. BACK: Nontender without obvious deformity. No CVA tenderness. Procedures None A/P Problem List: (1) Sepsis ICD Code: A41.9 - Sepsis, unspecified organism (2) Cough ICD Code: R05 - Cough Status: Acute (3) Interstitial pneumonitis ICD Code: J84.89 - Other specified interstitial pulmonary diseases Status: Acute (4) Respiratory distress ICD Code: R06.03 - Acute respiratory distress Status: Acute (5) Hypoxia ICD Code: R09.02 - Hypoxemia Status: Acute Assessment and Plan Ms. 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 She is currently on Nivolumab which she received every 2 weeks. She was admitted on 08/14/2017 due to progressively worsening shortness of breath. CT chest shows diffuse ground glass opacity throughout both lungs. - Acute respiratory failure hypoxic - Probable drug-induced pneumonitis - Respiratory failure is likely due to pneumonitis. - Continue Solu-Medrol 60 mg every 8 hours. Could consider switching to PO prednisone if okay with Oncology. - Will discontinue cefepime 2 g every 8 hours - We'll continue breathing treatments as well. Wean off O2 to keep O2 sat > 90%. Currently on 4L of O2. - Appreciate oncology input. - Patient is eating and drinking well. - Patient will likely need home O2. Walk test on the day of discharge when Heme/onc clears for discharge. - Hodgkin's lymphoma - patient follows up with Dr. Robles. Full code. Palak. Niraj Maher DO Aug 17, 2017 11:40 am
[2017-08-17 12:33] LABS: AUTOMATED NEUTROPHIL # 8.3 TH/MM3 (1.8-7.7); BASOPHIL % 0.3 % (0.0-2.0); HEMATOCRIT 33.6 % (35.0-46.0); HEMOGLOBIN 11.4 GM/DL (11.6-15.3); LYMPH % 10.8 % (9.0-44.0); LYMPHOCYTE # 1.1 TH/MM3 (1.0-4.8); MEAN CORPUSCULAR HEMOGLOBIN 36.5 PG (27.0-34.0); MEAN CORPUSCULAR HGB CONC 33.9 % (32.0-36.0); MEAN PLATELET VOLUME 9.1 FL (7.0-11.0); MONO % 9.5 % (0.0-8.0); NEUT % 79.4 % (16.0-70.0); PLATELET COUNT 82 TH/MM3 (150-450); RED BLOOD COUNT 3.12 MIL/MM3 (4.00-5.30); RED CELL DISTRIBUTION WIDTH 14.7 % (11.6-17.2); WHITE BLOOD COUNT 10.5 TH/MM3 (4.0-11.0)
[2017-08-17] MEDS ORDERED: LORazepam 0.5 MG TAB PO ONE (13:15)
--- NOTE | 2017-08-17 13:18 | PD.ONC.PN ---
Subjective Subjective Remarks Afebrile overnight. Patient resting in room. Breathing somewhat improved--now tolerating 4L O2 via NC, instead of 6L. Very anxious. Objective Data Date Time Temp Pulse Resp B/P (MAP) Pulse Ox O2 Delivery O2 Flow Rate FiO2 08/17/17 09:13 93 21 08/17/17 08:35 97.8 56 20 146/90 (108) 98 08/17/17 04:59 98.6 100 16 147/95 (112) 94 08/16/17 23:52 98.7 89 16 127/81 (96) 94 08/16/17 20:55 93 Nasal Cannula 4.00 08/16/17 20:05 91 Nasal Cannula 4.00 08/16/17 20:03 98.5 95 145/82 (103) 91 08/16/17 20:00 90 08/16/17 16:26 94 Nasal Cannula 4.00 08/16/17 16:13 99.1 95 18 157/97 (117) 96 Result Diagram: 08/17/17 1224 08/16/17 0500 Laboratory Results Laboratory Tests Test 08/17/17 12:24 White Blood Count 10.5 TH/MM3 Red Blood Count 3.12 MIL/MM3 Hemoglobin 11.4 GM/DL Hematocrit 33.6 % Mean Corpuscular Volume 108.0 FL Mean Corpuscular Hemoglobin 36.5 PG Mean Corpuscular Hemoglobin Concent 33.9 % Red Cell Distribution Width 14.7 % Platelet Count 82 TH/MM3 Mean Platelet Volume 9.1 FL Neutrophils (%) (Auto) 79.4 % Lymphocytes (%) (Auto) 10.8 % Monocytes (%) (Auto) 9.5 % Eosinophils (%) (Auto) 0.0 % Basophils (%) (Auto) 0.3 % Neutrophils # (Auto) 8.3 TH/MM3 Lymphocytes # (Auto) 1.1 TH/MM3 Monocytes # (Auto) 1.0 TH/MM3 Eosinophils # (Auto) 0.0 TH/MM3 Basophils # (Auto) 0.0 TH/MM3 CBC Comment AUTO DIFF Administered Medications Medications (Trade) Dose Ordered Sig/Ronaldo Route PRN Reason Start Time Stop Time Status Last Admin Dose Admin Sodium Chloride (NS Flush) 2 ml BID IV FLUSH 08/14/17 21:00 08/17/17 08:37 Enoxaparin Sodium (Lovenox Inj) 40 mg Q24H SQ 08/14/17 16:00 08/16/17 16:06 Methylprednisolone Sodium Succinate (SoluMEDROL INJ) 60 mg Q8HR IV PUSH 08/14/17 22:00 08/17/17 04:58 Albuterol/ Ipratropium (Duoneb Neb) 1 ampule QID NEB NEB 08/14/17 20:00 08/17/17 09:10 Albuterol Sulfate (Albuterol Neb) 2.5 mg Q2HR NEB PRN NEB DYSPNEA 08/14/17 18:30 08/17/17 05:42 Objective Remarks GENERAL: Pleasant female, sitting up in bed. anxious. on 4L O2 SKIN: Warm and dry. HEAD: Normocephalic. EYES: no injection or drainage. NECK: Supple, trachea midline. CARDIOVASCULAR: Regular rate and rhythm RESPIRATORY: breath sounds remain diminished/tight in all lung harrell, but there is mild improvement from yesterday's exam, +inspiratory and expiratory wheeze. GASTROINTESTINAL: Abdomen soft, non-tender, nondistended. EXTREMITIES: No cyanosis NEUROLOGICAL: awake and alert, normal speech. Assessment/Plan Assessment 52y/o with h/o Hodgkin's disease admitted with suspected pneumonitis d/t Nivolumab Plan 1. thrilled that patient has improved somewhat. would continue same dose IV steroids for now and do not start to wean as we do not want the patient to decompensate. would continue IV steroids until the patient is ready for discharge, then will d/c on high dose prednisone. 2. give ativan for anxiety. Attending Statement The exam, history, and the medical decision-making described in the above note were completed with the assistance of the mid-level provider. I reviewed and agree with the findings presented. I attest that I had a [id number] encounter with the patient on the same day, and personally performed and documented my assessment and findings in the medical record. She appears a little better. Would continue high dose steroids for several days then repeat CT of thorax without contrast. If doing better with decreased need for oxygen and improvement in CT of thorax would send home on 60 mg of prednisone daily and I can follow in clinic and taper steroids as outpatient. on discharge would make sure she has protonix or other similar drug. I will be away until next Monday and my service will cover. Thanks Julieta Mandel Aug 17, 2017 13:18 Jono Robles MD Aug 17, 2017 20:28
[2017-08-17] MEDS: ENOXAPARIN SODIUM 40 MG/0.4 ML SYRINGE SQ SCH (17:26)
[2017-08-18] VITALS (10 sets, daily range): BP systolic 126–137; BP diastolic 71–86; PULSE 78–93; RESP 18–21; TEMP 97.2–98.5; O2SAT 91–97
[2017-08-18] MEDS: methylPREDNISolone SOD SUCC 125 MG/2 ML VIAL IV PUSH SCH ×3 (05:14→21:38)
[2017-08-18] MEDS: SODIUM CHLORIDE 0.9% FLUSH 10 ML FLUSH IV FLUSH SCH ×2 (08:33→21:38)
[2017-08-18] MEDS: RESP: ALBUTEROL 2.5 MG/IPRATROPIUM 0.5 MG NEB (SCH) NEB ×3 (08:47→16:51)
--- NOTE | 2017-08-18 10:02 | PD.ONC.PN ---
Subjective Subjective Remarks Afebrile overnight. Patient resting in room in nad. Breathing better. wants to try working with physical therapy to walk with O2 today. Objective Data Date Time Temp Pulse Resp B/P (MAP) Pulse Ox O2 Delivery O2 Flow Rate FiO2 08/18/17 08:47 97 Nasal Cannula 4.00 08/18/17 05:15 98.3 93 18 133/85 (101) 94 08/18/17 00:32 98.5 90 18 126/86 (99) 91 08/17/17 21:30 Nasal Cannula 4.00 Humidified 08/17/17 21:27 98.1 95 18 140/85 (103) 98 08/17/17 20:33 101 08/17/17 20:11 98 Nasal Cannula 4.00 08/17/17 17:28 98.9 100 20 154/83 (106) 93 08/18/17 08/18/17 08/18/17 07:00 15:00 23:00 Intake Total 480 ml Output Total 500 ml Balance -20 ml Result Diagram: 08/17/17 1224 08/16/17 0500 Laboratory Results Laboratory Tests Test 08/17/17 12:24 White Blood Count 10.5 TH/MM3 Red Blood Count 3.12 MIL/MM3 Hemoglobin 11.4 GM/DL Hematocrit 33.6 % Mean Corpuscular Volume 108.0 FL Mean Corpuscular Hemoglobin 36.5 PG Mean Corpuscular Hemoglobin Concent 33.9 % Red Cell Distribution Width 14.7 % Platelet Count 82 TH/MM3 Mean Platelet Volume 9.1 FL Neutrophils (%) (Auto) 79.4 % Lymphocytes (%) (Auto) 10.8 % Monocytes (%) (Auto) 9.5 % Eosinophils (%) (Auto) 0.0 % Basophils (%) (Auto) 0.3 % Neutrophils # (Auto) 8.3 TH/MM3 Lymphocytes # (Auto) 1.1 TH/MM3 Monocytes # (Auto) 1.0 TH/MM3 Eosinophils # (Auto) 0.0 TH/MM3 Basophils # (Auto) 0.0 TH/MM3 CBC Comment AUTO DIFF Differential Comment AUTO DIFF CONFIRMED Platelet Estimate LOW Platelet Morphology Comment NORMAL Administered Medications Medications (Trade) Dose Ordered Sig/Ronaldo Route PRN Reason Start Time Stop Time Status Last Admin Dose Admin Sodium Chloride (NS Flush) 2 ml BID IV FLUSH 08/14/17 21:00 08/18/17 08:33 Enoxaparin Sodium (Lovenox Inj) 40 mg Q24H SQ 08/14/17 16:00 08/17/17 17:26 Methylprednisolone Sodium Succinate (SoluMEDROL INJ) 60 mg Q8HR IV PUSH 08/14/17 22:00 08/18/17 05:14 Albuterol/ Ipratropium (Duoneb Neb) 1 ampule QID NEB NEB 08/14/17 20:00 08/18/17 08:47 Albuterol Sulfate (Albuterol Neb) 2.5 mg Q2HR NEB PRN NEB DYSPNEA 08/14/17 18:30 08/17/17 05:42 Objective Remarks GENERAL: Middle aged female, sitting up in bed in nad. on 4L O2 via NC SKIN: Warm and dry. HEAD: Normocephalic. EYES: No injection or drainage. NECK: Supple, trachea midline. CARDIOVASCULAR: Regular rate and rhythm RESPIRATORY: scattered inspiratory and expiratory wheeze, all lung harrell. GASTROINTESTINAL: Abdomen soft, non-tender, nondistended. EXTREMITIES: No cyanosis NEUROLOGICAL: awake and alert, normal speech. moving all extremities. Assessment/Plan Assessment 52y/o admitted with pneumonitis, improving on high dose steroids h/o hodgkins disease Plan 1. plan to repeat CT thorax without contrast Monday. continue high dose (IV) steroids over the . 2. If doing better on Monday, would switch to PO Prednisone 60mg x 1 week (with Protonix) upon discharge. Dr. Robles plans to taper the steroids when she sees him at the clinic. Julieta Mandel Aug 18, 2017 10:02
--- NOTE | 2017-08-18 12:54 | HHI.PR ---
Subjective Remarks Follow-up for drug-induced pneumonitis. Patient is currently doing well. No chest pain, fever or chills. She reports breathing well on 4 L of oxygen. She requests that we discontinue her cardiac telemetry. She denies any history of heart disease. Objective Vitals Vital Signs Date Time Temp Pulse Resp B/P (MAP) Pulse Ox O2 Delivery O2 Flow Rate FiO2 08/18/17 11:36 97.2 93 18 130/81 (97) 96 08/18/17 11:35 93 08/18/17 11:35 96 Nasal Cannula 4.00 Humidified 08/18/17 08:47 97 Nasal Cannula 4.00 08/18/17 08:33 Nasal Cannula 4.00 Humidified 08/18/17 08:33 98.5 78 20 130/71 (90) 96 08/18/17 05:15 98.3 93 18 133/85 (101) 94 08/18/17 00:32 98.5 90 18 126/86 (99) 91 08/17/17 21:30 Nasal Cannula 4.00 Humidified 08/17/17 21:27 98.1 95 18 140/85 (103) 98 08/17/17 20:33 101 08/17/17 20:11 98 Nasal Cannula 4.00 08/17/17 17:28 98.9 100 20 154/83 (106) 93 I/O 08/17/17 08/17/17 08/17/17 08/18/17 08/18/17 08/18/17 07:00 15:00 23:00 07:00 15:00 23:00 Intake Total 700 ml 480 ml Output Total 1000 ml 500 ml Balance -300 ml -20 ml Intake Oral 700 ml 480 ml Output Urine Total 1000 ml 500 ml # Bowel Movements 1 Result Diagram: 08/17/17 1224 08/16/17 0500 Imaging Last Impressions Chest X-Ray 08/16/17 0600 Signed Impressions: Service Date/Time: Wednesday, August 16, 2017 09:11 - CONCLUSION: 1. No acute cardiopulmonary disease. Sergio Covarrubias MD Chest CT 08/14/17 0000 Signed Impressions: Service Date/Time: Monday, August 14, 2017 13:51 - CONCLUSION: Patchy groundglass opacity scattered throughout both lungs without pleural effusion. There is no pneumothorax. There is no adenopathy. Considerations include both inflammatory process as well as drug induced. Alan Mart MD FACR Objective Remarks GENERAL: Alert, NAD. SKIN: Warm and dry. HEAD: Normocephalic. EYES: No scleral icterus. No injection or drainage. NECK: Supple, trachea midline. No JVD or lymphadenopathy. CARDIOVASCULAR: Regular rate and rhythm without murmurs, gallops, or rubs. RESPIRATORY: Moderate breath sounds, diffuse crackles noted. GASTROINTESTINAL: Abdomen soft, non-tender, nondistended. MUSCULOSKELETAL: No cyanosis, or edema. BACK: Nontender without obvious deformity. No CVA tenderness. Procedures None A/P Problem List: (1) Sepsis ICD Code: A41.9 - Sepsis, unspecified organism (2) Cough ICD Code: R05 - Cough Status: Acute (3) Interstitial pneumonitis ICD Code: J84.89 - Other specified interstitial pulmonary diseases Status: Acute (4) Respiratory distress ICD Code: R06.03 - Acute respiratory distress Status: Acute (5) Hypoxia ICD Code: R09.02 - Hypoxemia Status: Acute Assessment and Plan Ms. 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 She is currently on Nivolumab which she received every 2 weeks. She was admitted on 08/14/2017 due to progressively worsening shortness of breath. CT chest shows diffuse ground glass opacity throughout both lungs. - Acute respiratory failure hypoxic - Probable drug-induced pneumonitis - Respiratory failure is likely due to pneumonitis. - Continue Solu-Medrol 60 mg every 8 hours. Could consider switching to PO prednisone if okay with Oncology. - discontinued cefepime 2 g every 8 hours - We'll continue breathing treatments as well. Wean off O2 to keep O2 sat > 90%. Currently on 4L of O2. - Appreciate oncology input. - Patient is eating and drinking well. - Patient will likely need home O2. Walk test on the day of discharge when Heme/onc clears for discharge. - Hodgkin's lymphoma - patient follows up with Dr. Robles. Full code. Lovenox. Discontinue cardiac telemetry Niraj Maher DO Aug 18, 2017 12:54 pm
[2017-08-18] MEDS: ENOXAPARIN SODIUM 40 MG/0.4 ML SYRINGE SQ SCH (14:27)
[2017-08-19] VITALS (8 sets, daily range): BP systolic 120–146; BP diastolic 71–84; PULSE 62–88; RESP 16–20; TEMP 97.9–98.7; O2SAT 94–100
[2017-08-19] MEDS: methylPREDNISolone SOD SUCC 125 MG/2 ML VIAL IV PUSH SCH ×3 (05:25→22:20)
[2017-08-19 05:57] LABS: AUTOMATED NEUTROPHIL # 5.2 TH/MM3 (1.8-7.7); BASOPHIL % 0.3 % (0.0-2.0); HEMATOCRIT 33.2 % (35.0-46.0); HEMOGLOBIN 11.1 GM/DL (11.6-15.3); LYMPH % 16.5 % (9.0-44.0); LYMPHOCYTE # 1.2 TH/MM3 (1.0-4.8); MEAN CELL VOLUME 107.2 FL (80.0-100.0); MEAN CORPUSCULAR HEMOGLOBIN 35.9 PG (27.0-34.0); MEAN CORPUSCULAR HGB CONC 33.5 % (32.0-36.0); MEAN PLATELET VOLUME 8.6 FL (7.0-11.0); NEUT % 70.2 % (16.0-70.0); PLATELET COUNT 77 TH/MM3 (150-450); RED CELL DISTRIBUTION WIDTH 14.5 % (11.6-17.2); WHITE BLOOD COUNT 7.3 TH/MM3 (4.0-11.0)
--- NOTE | 2017-08-19 08:33 | HHI.PR ---
Subjective Remarks This is a pleasant 52 y/o Female with Hodgkin's Lymphoma, who came to ER with worsening dyspnea and cough over the past few days, was started on Levaquin for presumed respiratory infection, the temperature was 101 at that time. admitted on 08/14/17, followed by legal specialist with diagnosis of Pneumonitis on high dose steroids, plan to repeat CT thorax without contrast on Monday08/20/17 if improving will switch to by mouth Prednisone 60 mg daily for one week and discharge. taper steroids on outpatient clinic. stable in her bedroom, continue on Oxygen discussed with nurse. Objective Vital Signs Date Time Temp Pulse Resp B/P (MAP) Pulse Ox O2 Delivery O2 Flow Rate FiO2 08/19/17 07:03 99 Nasal Cannula 4.00 21 08/19/17 05:23 98.2 69 16 120/77 (91) 99 08/19/17 03:10 Nasal Cannula 4.00 21 08/19/17 00:14 98.1 88 16 128/82 (97) 95 08/19/17 00:14 Nasal Cannula 08/18/17 22:49 96 Nasal Cannula 4.00 08/18/17 20:35 Nasal Cannula 4.00 21 Humidified 08/18/17 20:35 98.0 90 21 137/75 (95) 97 08/18/17 17:00 98.4 82 18 137/86 (103) 96 08/18/17 16:05 Nasal Cannula 4.00 21 Humidified 08/18/17 13:22 92 4.00 08/18/17 11:36 97.2 93 18 130/81 (97) 96 08/18/17 11:35 93 08/18/17 11:35 96 Nasal Cannula 4.00 Humidified 08/18/17 08:47 97 Nasal Cannula 4.00 08/18/17 08:33 Nasal Cannula 4.00 Humidified 08/18/17 08:33 98.5 78 20 130/71 (90) 96 I/O 08/18/17 08/18/17 08/18/17 08/19/17 08/19/17 08/19/17 07:00 15:00 23:00 07:00 15:00 23:00 Intake Total 480 ml 480 ml Output Total 500 ml 1000 ml 500 ml Balance -20 ml -1000 ml -20 ml Intake Oral 480 ml 480 ml Output Urine Total 500 ml 1000 ml 500 ml Stool Total 0 ml # Voids 4 # Bowel Movements 1 Result Diagram: 08/19/17 0530 08/16/17 0500 Imaging Last Impressions Chest X-Ray 08/16/17 0600 Signed Impressions: Service Date/Time: Wednesday, August 16, 2017 09:11 - CONCLUSION: 1. No acute cardiopulmonary disease. Sergio Covarrubias MD Chest CT 08/14/17 0000 Signed Impressions: Service Date/Time: Monday, August 14, 2017 13:51 - CONCLUSION: Patchy groundglass opacity scattered throughout both lungs without pleural effusion. There is no pneumothorax. There is no adenopathy. Considerations include both inflammatory process as well as drug induced. Alan Mart MD FACR Procedures None Other Results Laboratory Tests Test 08/14/17 12:30 08/14/17 12:40 08/14/17 13:20 08/15/17 07:21 Blood Gas Puncture Site RT RADIAL Blood Gas Patient Temperature 98.6 Blood Gas HCO3 26 mmol/L Blood Gas Base Excess 3.0 mmol/L Blood Gas Oxygen Saturation 89 % Arterial Blood pH 7.50 Arterial Blood Partial Pressure CO2 34 mmHg Arterial Blood Partial Pressure O2 58 mmHG Arterial Blood Oxygen Content 15.7 Vol % Arterial Blood Carboxyhemoglobin 1.7 % Arterial Blood Methemoglobin 0.7 % Blood Gas Hemoglobin 12.6 G/DL Oxygen Delivery Device NASAL CANNULA Blood Gas Liter Flow 6 L/M Lactic Acid Level 2.0 mmol/L Blood Urea Nitrogen 5 MG/DL Creatinine 0.78 MG/DL Random Glucose 122 MG/DL Total Protein 7.9 GM/DL Albumin 3.1 GM/DL Calcium Level 8.9 MG/DL Alkaline Phosphatase 133 U/L Aspartate Amino Transf (AST/SGOT) 66 U/L Alanine Aminotransferase (ALT/SGPT) 57 U/L Total Bilirubin 0.5 MG/DL Sodium Level 137 MEQ/L Potassium Level 3.7 MEQ/L Chloride Level 101 MEQ/L Carbon Dioxide Level 28.2 MEQ/L Urine Color YELLOW Urine Turbidity CLEAR Urine pH 6.5 Urine Specific [place] 1.005 Urine Protein 30 mg/dL Urine Glucose (UA) NEG mg/dL Urine Ketones NEG mg/dL Urine Occult Blood TRACE Urine Nitrite NEG Urine Bilirubin NEG Urine Urobilinogen LESS THAN 2.0 MG/DL Urine Leukocyte Esterase NEG Urine RBC 1 /hpf Urine WBC 1 /hpf Urine Squamous Epithelial Cells 1 /hpf Urine Transitional Epithelial Cells <1 /hpf Microscopic Urinalysis Comment CATH-CULT NOT IND Cytomegalovirus DNA Quant (PCR) Undetected IU/mL Test 08/16/17 05:00 08/16/17 09:00 08/17/17 12:24 08/19/17 05:30 Differential Total Cells Counted 100 Neutrophils % (Manual) 85 % Band Neutrophils % 2 % Lymphocytes % 6 % Monocytes % 7 % Neutrophils # (Manual) 8.4 TH/MM3 Nucleated Red Blood Cells 1 /100 WBC Blood Urea Nitrogen 10 MG/DL Creatinine 0.56 MG/DL Random Glucose 125 MG/DL Calcium Level 8.2 MG/DL Sodium Level 138 MEQ/L Potassium Level 3.8 MEQ/L Chloride Level 104 MEQ/L Carbon Dioxide Level 24.2 MEQ/L Anion Gap 10 MEQ/L Estimat Glomerular Filtration Rate 138 ML/MIN Platelet Estimate LOW Platelet Morphology Comment NORMAL White Blood Count 7.3 TH/MM3 Red Blood Count 3.10 MIL/MM3 Hemoglobin 11.1 GM/DL Hematocrit 33.2 % Mean Corpuscular Volume 107.2 FL Mean Corpuscular Hemoglobin 35.9 PG Mean Corpuscular Hemoglobin Concent 33.5 % Red Cell Distribution Width 14.5 % Platelet Count 77 TH/MM3 Mean Platelet Volume 8.6 FL Neutrophils (%) (Auto) 70.2 % Lymphocytes (%) (Auto) 16.5 % Monocytes (%) (Auto) 13.0 % Eosinophils (%) (Auto) 0.0 % Basophils (%) (Auto) 0.3 % Neutrophils # (Auto) 5.2 TH/MM3 Lymphocytes # (Auto) 1.2 TH/MM3 Monocytes # (Auto) 1.0 TH/MM3 Eosinophils # (Auto) 0.0 TH/MM3 Basophils # (Auto) 0.0 TH/MM3 CBC Comment AUTO DIFF Objective Remarks GENERAL: Alert, NAD. SKIN: Warm and dry. HEAD: Normocephalic. EYES: No scleral icterus. No injection or drainage. NECK: Supple, trachea midline. No JVD or lymphadenopathy. CARDIOVASCULAR: Regular rate and rhythm without murmurs, gallops, or rubs. RESPIRATORY: Moderate breath sounds, diffuse crackles noted. GASTROINTESTINAL: Abdomen soft, non-tender, nondistended. MUSCULOSKELETAL: No cyanosis, or edema. BACK: Nontender without obvious deformity. No CVA tenderness. Medications and IVs Current Medications Medications (Trade) Dose Ordered Sig/Ronaldo Route Start Time Stop Time Status Last Admin (NS Flush) 2 ml UNSCH PRN IV FLUSH 08/14/17 15:00 (NS Flush) 2 ml BID IV FLUSH 08/14/17 21:00 08/18/17 21:38 (Lovenox Inj) 40 mg Q24H SQ 08/14/17 16:00 08/18/17 14:27 (Narcan Inj) 0.4 mg UNSCH PRN IV PUSH 08/14/17 15:00 (Milk Of Magnesia Liq) 30 ml Q12H PRN PO 08/14/17 15:00 (Senokot) 17.2 mg Q12H PRN PO 08/14/17 15:00 (Dulcolax Supp) 10 mg DAILY PRN RECTAL 08/14/17 15:00 (Lactulose Liq) 30 ml DAILY PRN PO 08/14/17 15:00 (SoluMEDROL INJ) 60 mg Q8HR IV PUSH 08/14/17 22:00 08/19/17 05:25 (Tessalon) 100 mg TID PRN PO 08/14/17 18:15 (Albuterol Neb) 2.5 mg Q2HR NEB PRN NEB 08/14/17 18:30 08/17/17 05:42 (Tylenol) 650 mg Q4H PRN PO 08/15/17 09:30 (Restoril) 15 mg HS PRN PO 08/15/17 21:00 (NS Flush) 5 ml UNSCH PRN IV FLUSH 08/17/17 13:00 (Heparin Central Flush) 250 units UNSCH PRN IV FLUSH 08/17/17 13:00 08/18/17 21:39 (Heparin Central Flush) 500 units UNSCH IV FLUSH 08/17/17 13:00 A/P Assessment and Plan 1. Acute respiratory failure Hypoxic continue Oxygen as needed 2. Probable drug-induced Pneumonitis, to continue Solu-Medrol 60 mg every 8 hours consider to switch to Prednisone by mouth 60 mg for seven days and continue titration on outpatient clinic depending of the new CT chest without contrast for 08/20/17, patient status post ABVD chemotherapy and radiation, now on Nivolumab, continue Bronchodilator, Mucolytic incentive spirometry and wean oxygen to keep oxygen saturation over 90% removed Cefepime yesterday. 3. Hodgkin's Lymphoma followed by his Primary legal specialist Doctor Margaret Full code. Lovenox. Discharge Planning Once cleared by legal specialist. Ian Mccann MD Aug 19, 2017 08:33
[2017-08-19] MEDS: SODIUM CHLORIDE 0.9% FLUSH 10 ML FLUSH IV FLUSH SCH ×2 (09:03→20:28)
[2017-08-19] MEDS: RESP: ALBUTEROL 2.5 MG/3 ML NEB (PRN) NEB ×3 (09:21→20:57)
[2017-08-19 09:32] LABS: BANDS 5 % (0-6); CORRECTED NUCLEATED RBC 3 /100 WBC (0-0); LYMPHOCYTES 19 % (9-44); MONOCYTES 9 % (0-8); MYELOCYTES 2 % (0-0); NEUTROPHIL # MANUAL DIFF 5.3 TH/MM3 (1.8-7.7); NUCLEATED RED BLOOD CELL 3 (0-0); POLYS (SEG NEUTROPHILS) 65 % (16-70)
[2017-08-19] MEDS: PANTOPRAZOLE SOD 20 MG DELAYED RELEASE TAB PO SCH (14:46)
[2017-08-19] MEDS: ENOXAPARIN SODIUM 40 MG/0.4 ML SYRINGE SQ SCH (14:52)
--- NOTE | 2017-08-19 15:06 | PD.ONC.PN ---
Subjective Subjective Remarks Afebrile Patient reports she has been feeling congested Shortness of breath improved since admission Objective Data Date Time Temp Pulse Resp B/P (MAP) Pulse Ox O2 Delivery O2 Flow Rate FiO2 08/19/17 12:00 100 Nasal Cannula 4.00 08/19/17 12:00 98.3 82 18 142/78 (99) 100 08/19/17 11:27 95 Nasal Cannula 3.00 08/19/17 09:22 94 Nasal Cannula 3.00 08/19/17 09:06 99 Nasal Cannula 3.00 08/19/17 09:03 97.9 62 20 131/73 (92) 97 08/19/17 07:03 99 Nasal Cannula 4.00 21 08/19/17 05:23 98.2 69 16 120/77 (91) 99 08/19/17 03:10 Nasal Cannula 4.00 21 08/19/17 00:14 98.1 88 16 128/82 (97) 95 08/19/17 00:14 Nasal Cannula 08/18/17 22:49 96 Nasal Cannula 4.00 08/18/17 20:35 Nasal Cannula 4.00 21 Humidified 08/18/17 20:35 98.0 90 21 137/75 (95) 97 08/18/17 17:00 98.4 82 18 137/86 (103) 96 08/18/17 16:05 Nasal Cannula 4.00 21 Humidified 08/19/17 08/19/17 08/19/17 07:00 15:00 23:00 Intake Total 480 ml Output Total 500 ml Balance -20 ml Result Diagram: 08/19/17 0530 08/16/17 0500 Laboratory Results Laboratory Tests Test 08/19/17 05:30 White Blood Count 7.3 TH/MM3 Red Blood Count 3.10 MIL/MM3 Hemoglobin 11.1 GM/DL Hematocrit 33.2 % Mean Corpuscular Volume 107.2 FL Mean Corpuscular Hemoglobin 35.9 PG Mean Corpuscular Hemoglobin Concent 33.5 % Red Cell Distribution Width 14.5 % Platelet Count 77 TH/MM3 Mean Platelet Volume 8.6 FL Neutrophils (%) (Auto) 70.2 % Lymphocytes (%) (Auto) 16.5 % Monocytes (%) (Auto) 13.0 % Eosinophils (%) (Auto) 0.0 % Basophils (%) (Auto) 0.3 % Neutrophils # (Auto) 5.2 TH/MM3 Lymphocytes # (Auto) 1.2 TH/MM3 Monocytes # (Auto) 1.0 TH/MM3 Eosinophils # (Auto) 0.0 TH/MM3 Basophils # (Auto) 0.0 TH/MM3 CBC Comment AUTO DIFF Differential Total Cells Counted 100 Neutrophils % (Manual) 65 % Band Neutrophils % 5 % Lymphocytes % 19 % Monocytes % 9 % Neutrophils # (Manual) 5.3 TH/MM3 Myelocytes 2 % Nucleated Red Blood Cells 3 /100 WBC Differential Comment FINAL DIFF MANUAL Platelet Estimate LOW Platelet Morphology Comment NORMAL Administered Medications Medications (Trade) Dose Ordered Sig/Ronaldo Route PRN Reason Start Time Stop Time Status Last Admin Dose Admin Sodium Chloride (NS Flush) 2 ml BID IV FLUSH 08/14/17 21:00 08/19/17 09:03 Enoxaparin Sodium (Lovenox Inj) 40 mg Q24H SQ 08/14/17 16:00 08/19/17 14:52 Methylprednisolone Sodium Succinate (SoluMEDROL INJ) 60 mg Q8HR IV PUSH 08/14/17 22:00 08/19/17 14:46 Albuterol Sulfate (Albuterol Neb) 2.5 mg Q2HR NEB PRN NEB DYSPNEA 08/14/17 18:30 08/19/17 09:21 Heparin Sodium (Porcine) (Heparin Central Flush) 250 units UNSCH PRN IV FLUSH SEE PROTOCOL TABLE 08/17/17 13:00 08/19/17 08:58 Pantoprazole Sodium (Protonix) 20 mg DAILY PO 08/19/17 14:15 08/19/17 14:46 Objective Remarks GENERAL: Middle aged female, sitting up in bed in no acute distress. On 4L O2 via NC SKIN: Warm and dry. HEAD: Normocephalic. EYES: No injection or drainage. NECK: Supple, trachea midline. CARDIOVASCULAR: Regular rate and rhythm RESPIRATORY: Diminished lung sounds to bilateral lung harrell GASTROINTESTINAL: Abdomen soft, non-tender, nondistended. EXTREMITIES: No cyanosis NEUROLOGICAL: A and O 3. No obvious focal deficit. Assessment/Plan Problem List: (1) Interstitial pneumonitis ICD Codes: J84.89 - Other specified interstitial pulmonary diseases Status: Acute Plan: -- The patient has been on multiple lines of therapy for her Hodgkin's lymphoma -- Most recently she has been on Nivolumab -- Admitted with progressive shortness of breath -- CT the chest shows groundglass appearance Assessment 52y/o admitted with pneumonitis, improving on high dose steroids h/o hodgkins disease Plan 1. Repeat CT thorax without contrast tomorrow 2. Continue Solu-Medrol at current dosing 3. Add on Protonix 20 mg by mouth daily 4. We will possibly decrease steroids to by mouth prednisone on Monday if improved Attending Statement The exam, history, and the medical decision-making described in the above note were completed with the assistance of the mid-level provider. I reviewed and agree with the findings presented. I attest that I had a [id number] encounter with the patient on the same day, and personally performed and documented my assessment and findings in the medical record HL on Nivolumab--no on hold ? auto-immune pneumonitis High dose steroids 60mg q[address] chest with contrast possible D/C on Monday if stable on high dose steroids nasal congestion started afrin PPI started d/w rn o/n events reviewed I had long discussion with patient. she had questions about Nivolumab and potential toxicity again if restarted. will get PFTs. f/u with Dr. Robles to discuss treatment options. no diarrhea to suggest autoimmune colitis check TSH levels and AM cortisol Dorina Roberts Aug 19, 2017 15:06 Brandon Gonzales MD Aug 19, 2017 15:51
[2017-08-19] MEDS ORDERED: OXYMETAZOLINE HCL 0.05% 15 ML NASAL SPRAY NASAL PRN (15:15)
[2017-08-19] MEDS: guaiFENesin E.R. 600 MG TAB PO SCH (20:24)
[2017-08-20] VITALS (8 sets, daily range): BP systolic 116–137; BP diastolic 69–93; PULSE 75–94; RESP 14–21; TEMP 98.4–98.8; O2SAT 90–100
[2017-08-20] MEDS: methylPREDNISolone SOD SUCC 125 MG/2 ML VIAL IV PUSH SCH ×3 (05:23→21:31)
[2017-08-20 06:11] LABS: BICARBONATE 31.4 MEQ/L (21.0-32.0); CALCIUM 8.1 MG/DL (8.5-10.1); CREATININE 0.63 MG/DL (0.50-1.00); MAGNESIUM 2.1 MG/DL (1.5-2.5)
--- NOTE | 2017-08-20 08:09 | HHI.PR ---
Subjective Remarks This is a pleasant 52 y/o Female with Hodgkin's Lymphoma, who came to ER with worsening dyspnea and cough over the past few days, was started on Levaquin for presumed respiratory infection, the temperature was 101 at that time. admitted on 08/14/17, followed by reconciliation specialist with diagnosis of Pneumonitis on high dose steroids, plan to repeat CT thorax without contrast on Monday08/20/17 if improving will switch to by mouth Prednisone 60 mg daily for one week and discharge. taper steroids on outpatient clinic. stable in her bedroom, continue on Oxygen discussed with nurse. 08/20: Stable seen in her bedroom, no new issues, no nausea, vomit or diarrhea, titrating to remove Oxygen, at this time at room air. as per reconciliation specialist probable discharge in am tomorrow. Objective Vital Signs Date Time Temp Pulse Resp B/P (MAP) Pulse Ox O2 Delivery O2 Flow Rate FiO2 08/20/17 05:20 98.5 75 21 131/75 (93) 98 08/20/17 03:06 Nasal Cannula 4.00 21 08/20/17 00:07 Nasal Cannula 4.00 08/20/17 00:07 98.5 88 15 118/75 (89) 96 08/19/17 21:01 99 Nasal Cannula 4.00 08/19/17 20:25 Nasal Cannula 4.00 08/19/17 20:23 98.7 78 18 130/84 (99) 96 08/19/17 16:08 98.5 78 20 146/71 (96) 97 08/19/17 12:00 100 Nasal Cannula 4.00 08/19/17 12:00 98.3 82 18 142/78 (99) 100 08/19/17 11:27 95 Nasal Cannula 3.00 08/19/17 09:22 94 Nasal Cannula 3.00 08/19/17 09:06 99 Nasal Cannula 3.00 08/19/17 09:03 97.9 62 20 131/73 (92) 97 I/O 08/19/17 08/19/17 08/19/17 08/20/17 08/20/17 08/20/17 06:59 14:59 22:59 06:59 14:59 22:59 Intake Total 480 ml 1440 ml 720 ml Output Total 500 ml 1900 ml 900 ml Balance -20 ml -460 ml -180 ml Intake Oral 480 ml 1440 ml 720 ml Output Urine Total 500 ml 1900 ml 900 ml Result Diagram: 08/19/17 0530 08/20/17 0527 Imaging Last Impressions Chest X-Ray 08/16/17 0600 Signed Impressions: Service Date/Time: Wednesday, August 16, 2017 09:11 - CONCLUSION: 1. No acute cardiopulmonary disease. Sergio Covarrubias MD Chest CT 08/14/17 0000 Signed Impressions: Service Date/Time: Monday, August 14, 2017 13:51 - CONCLUSION: Patchy groundglass opacity scattered throughout both lungs without pleural effusion. There is no pneumothorax. There is no adenopathy. Considerations include both inflammatory process as well as drug induced. Alan Mart MD FACR Procedures None Other Results Laboratory Tests Test 08/14/17 12:30 08/14/17 12:40 08/14/17 13:20 08/15/17 07:21 Blood Gas Puncture Site RT RADIAL Blood Gas Patient Temperature 98.6 Blood Gas HCO3 26 mmol/L Blood Gas Base Excess 3.0 mmol/L Blood Gas Oxygen Saturation 89 % Arterial Blood pH 7.50 Arterial Blood Partial Pressure CO2 34 mmHg Arterial Blood Partial Pressure O2 58 mmHG Arterial Blood Oxygen Content 15.7 Vol % Arterial Blood Carboxyhemoglobin 1.7 % Arterial Blood Methemoglobin 0.7 % Blood Gas Hemoglobin 12.6 G/DL Oxygen Delivery Device NASAL CANNULA Blood Gas Liter Flow 6 L/M Lactic Acid Level 2.0 mmol/L Blood Urea Nitrogen 5 MG/DL Creatinine 0.78 MG/DL Random Glucose 122 MG/DL Total Protein 7.9 GM/DL Albumin 3.1 GM/DL Calcium Level 8.9 MG/DL Alkaline Phosphatase 133 U/L Aspartate Amino Transf (AST/SGOT) 66 U/L Alanine Aminotransferase (ALT/SGPT) 57 U/L Total Bilirubin 0.5 MG/DL Sodium Level 137 MEQ/L Potassium Level 3.7 MEQ/L Chloride Level 101 MEQ/L Carbon Dioxide Level 28.2 MEQ/L Urine Color YELLOW Urine Turbidity CLEAR Urine pH 6.5 Urine Specific [place] 1.005 Urine Protein 30 mg/dL Urine Glucose (UA) NEG mg/dL Urine Ketones NEG mg/dL Urine Occult Blood TRACE Urine Nitrite NEG Urine Bilirubin NEG Urine Urobilinogen LESS THAN 2.0 MG/DL Urine Leukocyte Esterase NEG Urine RBC 1 /hpf Urine WBC 1 /hpf Urine Squamous Epithelial Cells 1 /hpf Urine Transitional Epithelial Cells <1 /hpf Microscopic Urinalysis Comment CATH-CULT NOT IND Cytomegalovirus DNA Quant (PCR) Undetected IU/mL Test 08/16/17 09:00 08/19/17 05:30 08/20/17 05:27 White Blood Count 7.3 TH/MM3 Red Blood Count 3.10 MIL/MM3 Hemoglobin 11.1 GM/DL Hematocrit 33.2 % Mean Corpuscular Volume 107.2 FL Mean Corpuscular Hemoglobin 35.9 PG Mean Corpuscular Hemoglobin Concent 33.5 % Red Cell Distribution Width 14.5 % Platelet Count 77 TH/MM3 Mean Platelet Volume 8.6 FL Neutrophils (%) (Auto) 70.2 % Lymphocytes (%) (Auto) 16.5 % Monocytes (%) (Auto) 13.0 % Eosinophils (%) (Auto) 0.0 % Basophils (%) (Auto) 0.3 % Neutrophils # (Auto) 5.2 TH/MM3 Lymphocytes # (Auto) 1.2 TH/MM3 Monocytes # (Auto) 1.0 TH/MM3 Eosinophils # (Auto) 0.0 TH/MM3 Basophils # (Auto) 0.0 TH/MM3 CBC Comment AUTO DIFF Differential Total Cells Counted 100 Neutrophils % (Manual) 65 % Band Neutrophils % 5 % Lymphocytes % 19 % Monocytes % 9 % Neutrophils # (Manual) 5.3 TH/MM3 Myelocytes 2 % Nucleated Red Blood Cells 3 /100 WBC Differential Comment FINAL DIFF MANUAL Platelet Estimate LOW Platelet Morphology Comment NORMAL Blood Urea Nitrogen 15 MG/DL Creatinine 0.63 MG/DL Random Glucose 115 MG/DL Calcium Level 8.1 MG/DL Magnesium Level 2.1 MG/DL Sodium Level 140 MEQ/L Potassium Level 3.6 MEQ/L Chloride Level 101 MEQ/L Carbon Dioxide Level 31.4 MEQ/L Anion Gap 8 MEQ/L Estimat Glomerular Filtration Rate 120 ML/MIN Objective Remarks GENERAL: Alert, NAD. SKIN: Warm and dry. HEAD: Normocephalic. EYES: No scleral icterus. No injection or drainage. NECK: Supple, trachea midline. No JVD or lymphadenopathy. CARDIOVASCULAR: Regular rate and rhythm without murmurs, gallops, or rubs. RESPIRATORY: Moderate breath sounds, diffuse crackles noted. GASTROINTESTINAL: Abdomen soft, non-tender, nondistended. MUSCULOSKELETAL: No cyanosis, or edema. BACK: Nontender without obvious deformity. No CVA tenderness. Medications and IVs Current Medications Medications (Trade) Dose Ordered Sig/Ronaldo Route Start Time Stop Time Status Last Admin (NS Flush) 2 ml UNSCH PRN IV FLUSH 08/14/17 15:00 (NS Flush) 2 ml BID IV FLUSH 08/14/17 21:00 08/19/17 20:28 (Lovenox Inj) 40 mg Q24H SQ 08/14/17 16:00 08/19/17 14:52 (Narcan Inj) 0.4 mg UNSCH PRN IV PUSH 08/14/17 15:00 (Milk Of Magnesia Liq) 30 ml Q12H PRN PO 08/14/17 15:00 (Senokot) 17.2 mg Q12H PRN PO 08/14/17 15:00 (Dulcolax Supp) 10 mg DAILY PRN RECTAL 08/14/17 15:00 (Lactulose Liq) 30 ml DAILY PRN PO 08/14/17 15:00 (SoluMEDROL INJ) 60 mg Q8HR IV PUSH 08/14/17 22:00 08/20/17 05:23 (Tessalon) 100 mg TID PRN PO 08/14/17 18:15 (Albuterol Neb) 2.5 mg Q2HR NEB PRN NEB 08/14/17 18:30 08/19/17 20:57 (Tylenol) 650 mg Q4H PRN PO 08/15/17 09:30 (Restoril) 15 mg HS PRN PO 08/15/17 21:00 (NS Flush) 5 ml UNSCH PRN IV FLUSH 08/17/17 13:00 (Heparin Central Flush) 250 units UNSCH PRN IV FLUSH 08/17/17 13:00 08/20/17 05:23 (Heparin Central Flush) 500 units UNSCH IV FLUSH 08/17/17 13:00 (Protonix) 20 mg DAILY PO 08/19/17 14:15 08/19/17 14:46 (Afrin 0.05% Shaji Barnes) 2 spray Q12H PRN NASAL 08/19/17 15:15 (Mucinex Er) 600 mg BID PO 08/19/17 21:00 08/19/17 20:24 A/P Assessment and Plan 1. Acute respiratory failure Hypoxic continue Oxygen as needed 2. Probable drug-induced Pneumonitis, to continue Solu-Medrol 60 mg every 8 hours consider to switch to Prednisone by mouth 60 mg for seven days and continue titration on outpatient clinic depending of the new CT chest without contrast for 08/20/17, patient status post ABVD chemotherapy and radiation, now on Nivolumab, continue Bronchodilator, Mucolytic incentive spirometry and wean oxygen to keep oxygen saturation over 90% removed Cefepime off antibiotics. 3. Hodgkin's Lymphoma followed by his Primary reconciliation specialist Doctor Margaret Discussed with nurse, with patient and with Oncology's TELEVISION REPAIR TEACHER Miss Dorina Roberts. Full code. Lovenox. Discharge Planning Once cleared by reconciliation specialist. Ian Mccann MD Aug 20, 2017 08:09
[2017-08-20] MEDS: SODIUM CHLORIDE 0.9% FLUSH 10 ML FLUSH IV FLUSH SCH ×2 (08:43→21:31)
[2017-08-20] MEDS: guaiFENesin E.R. 600 MG TAB PO SCH ×2 (08:43→21:30)
[2017-08-20] MEDS: PANTOPRAZOLE SOD 20 MG DELAYED RELEASE TAB PO SCH (08:43)
[2017-08-20] MEDS: RESP: ALBUTEROL 2.5 MG/3 ML NEB (PRN) NEB ×2 (09:01→21:37)
--- NOTE | 2017-08-20 10:10 | PD.ONC.PN ---
Subjective Subjective Remarks Afebrile Reports congestion is better "I don't think I need the oxygen" Looking forward to having visitors see her today Objective Data Date Time Temp Pulse Resp B/P (MAP) Pulse Ox O2 Delivery O2 Flow Rate FiO2 08/20/17 09:03 98 Nasal Cannula 3.00 08/20/17 08:39 98.8 80 14 134/81 (98) 100 08/20/17 08:00 Nasal Cannula 4.00 08/20/17 05:20 98.5 75 21 131/75 (93) 98 08/20/17 03:06 Nasal Cannula 4.00 21 08/20/17 00:07 Nasal Cannula 4.00 08/20/17 00:07 98.5 88 15 118/75 (89) 96 08/19/17 21:01 99 Nasal Cannula 4.00 08/19/17 20:25 Nasal Cannula 4.00 08/19/17 20:23 98.7 78 18 130/84 (99) 96 08/19/17 16:08 98.5 78 20 146/71 (96) 97 08/19/17 12:00 100 Nasal Cannula 4.00 08/19/17 12:00 98.3 82 18 142/78 (99) 100 08/19/17 11:27 95 Nasal Cannula 3.00 08/20/17 08/20/17 08/20/17 07:00 15:00 23:00 Intake Total 720 ml Output Total 900 ml Balance -180 ml Result Diagram: 08/19/17 0530 08/20/17 0527 Laboratory Results Laboratory Tests Test 08/20/17 05:27 Blood Urea Nitrogen 15 MG/DL Creatinine 0.63 MG/DL Random Glucose 115 MG/DL Calcium Level 8.1 MG/DL Magnesium Level 2.1 MG/DL Sodium Level 140 MEQ/L Potassium Level 3.6 MEQ/L Chloride Level 101 MEQ/L Carbon Dioxide Level 31.4 MEQ/L Anion Gap 8 MEQ/L Estimat Glomerular Filtration Rate 120 ML/MIN Administered Medications Medications (Trade) Dose Ordered Sig/Ronaldo Route PRN Reason Start Time Stop Time Status Last Admin Dose Admin Sodium Chloride (NS Flush) 2 ml BID IV FLUSH 08/14/17 21:00 08/19/17 20:28 Enoxaparin Sodium (Lovenox Inj) 40 mg Q24H SQ 08/14/17 16:00 08/19/17 14:52 Methylprednisolone Sodium Succinate (SoluMEDROL INJ) 60 mg Q8HR IV PUSH 08/14/17 22:00 08/20/17 05:23 Albuterol Sulfate (Albuterol Neb) 2.5 mg Q2HR NEB PRN NEB DYSPNEA 08/14/17 18:30 08/20/17 09:01 Heparin Sodium (Porcine) (Heparin Central Flush) 250 units UNSCH PRN IV FLUSH SEE PROTOCOL TABLE 08/17/17 13:00 08/20/17 05:23 Pantoprazole Sodium (Protonix) 20 mg DAILY PO 08/19/17 14:15 08/20/17 08:43 Guaifenesin (Mucinex Er) 600 mg BID PO 08/19/17 21:00 08/20/17 08:43 Objective Remarks GENERAL: Middle aged female, sitting up in bed in no acute distress. SKIN: Warm and dry. HEAD: Normocephalic. EYES: No injection or drainage. NECK: Supple, trachea midline. CARDIOVASCULAR: Regular rate and rhythm RESPIRATORY: Scattered crackles to the bases. GASTROINTESTINAL: Abdomen soft, non-tender, nondistended. EXTREMITIES: No cyanosis NEUROLOGICAL: A and O 3. No obvious focal deficit. Assessment/Plan Problem List: (1) Interstitial pneumonitis ICD Codes: J84.89 - Other specified interstitial pulmonary diseases Status: Acute Plan: -- The patient has been on multiple lines of therapy for her Hodgkin's lymphoma -- Most recently she has been on Nivolumab -- Admitted with progressive shortness of breath -- CT the chest shows groundglass appearance Assessment 52y/o admitted with pneumonitis, improving on high dose steroids h/o hodgkins disease Plan 1. CT chest without contrast today to evaluate response to high-dose steroids 2. Continue Solu-Medrol 3. Further recommendations based on results of CT scan Attending Statement The exam, history, and the medical decision-making described in the above note were completed with the assistance of the mid-level provider. I reviewed and agree with the findings presented. I attest that I had a [id number] encounter with the patient on the same day, and personally performed and documented my assessment and findings in the medical record doing okay no fevers no pain walk test today TSH and AM cortisol chest CT pending d/c tomorrow d/w rn o/n events reviewed Dorina Roberts Aug 20, 2017 10:10 Brandon Gonzales MD Aug 20, 2017 12:16
--- NOTE | 2017-08-20 13:12 | RADRPT ---
EXAM DATE/TIME: 08/20/2017 12:52 [place] COMPARISON: CT THORAX W/O CONTRAST, August 14, 2017, 13:51. INDICATIONS : Shortness of breath. RADIATION DOSE: 9.21 CTDIvol (mGy) MEDICAL HISTORY : Lymphoma. SURGICAL HISTORY : Hysterectomy. ENCOUNTER: Initial ACUITY: 1 day PAIN SCALE: 0/10 LOCATION: Bilateral chest TECHNIQUE: Volumetric scanning of the chest was performed. Using automated exposure control and adjustment of t he mA and/or kV according to patient size, radiation dose was kept as low as reasonably achievable to obtain optimal diagnostic quality images. DICOM format image data is available electronically for r eview and comparison. Follow-up recommendations for detected pulmonary nodules are based at a minimum on nodule size and pa tient risk factors according to Fleischner Society Guidelines. FINDINGS: LUNGS: Marked decrease in bilateral pulmonary parenchymal opacity. Minimal patchy residual opacity is seen i n the upper lobes and lower lobes bilaterally. Opacity is primarily ground glass. PLEURAE: There is no pleural thickening or pleural effusion. MEDIASTINUM: Coronary artery calcifications. No enlarged lymph nodes. AXILLAE: Within normal limits. No lymphadenopathy. MUSCULOSKELETAL: Within normal limits for patient age. MISCELLANEOUS: The visualized upper abdominal organs demonstrate no acute abnormality. CONCLUSION: Marked decrease in bilateral pulmonary opacity with mild patchy residual predominantly groundglass op acity. Omero Emerson MD on August 20, 2017 at 13:08 Board Certified Radiologist. This report was verified electronically.
[2017-08-20] MEDS: ENOXAPARIN SODIUM 40 MG/0.4 ML SYRINGE SQ SCH (17:46)
[2017-08-20] MEDS: SODIUM CHLORIDE 0.9% FLUSH 10 ML FLUSH IV FLUSH PRN (21:31)
[2017-08-21 00:40] VITALS: BP 123/83; PULSE 92; RESP 16; TEMP 98.5; O2SAT 94
[2017-08-21 03:37] VITALS: BP 127/65; PULSE 86; RESP 16; TEMP 98.4; O2SAT 95
[2017-08-21 04:42] LABS: AUTOMATED NEUTROPHIL # 7.4 TH/MM3 (1.8-7.7); BASOPHIL % 0.2 % (0.0-2.0); HEMATOCRIT 33.1 % (35.0-46.0); HEMOGLOBIN 10.9 GM/DL (11.6-15.3); LYMPH % 11.3 % (9.0-44.0); MEAN CELL VOLUME 108.5 FL (80.0-100.0); MEAN CORPUSCULAR HEMOGLOBIN 35.8 PG (27.0-34.0); MEAN PLATELET VOLUME 9.3 FL (7.0-11.0); MONO % 7.5 % (0.0-8.0); MONOCYTE # 0.7 TH/MM3 (0-0.9); PLATELET COUNT 74 TH/MM3 (150-450); RED BLOOD COUNT 3.05 MIL/MM3 (4.00-5.30); RED CELL DISTRIBUTION WIDTH 14.8 % (11.6-17.2); WHITE BLOOD COUNT 9.1 TH/MM3 (4.0-11.0)
[2017-08-21 05:03] LABS: ALBUMIN 2.5 GM/DL (3.4-5.0); ALT (GPT) 88 U/L (10-53); AST (GOT) 20 U/L (15-37); BICARBONATE 32.5 MEQ/L (21.0-32.0); CALCIUM 8.1 MG/DL (8.5-10.1); CHLORIDE 103 MEQ/L (98-107); CREATININE 0.62 MG/DL (0.50-1.00); GLOMERULAR FILTRATION RATE 122 ML/MIN (>89); GLUCOSE,RANDOM 106 MG/DL (74-106); SODIUM (NA) 142 MEQ/L (136-145)
[2017-08-21 05:13] LABS: ALKALINE PHOSPHATASE 85 U/L (45-117); BLOOD UREA NITROGEN 14 MG/DL (7-18); TOTAL BILIRUBIN ADULT 0.4 MG/DL (0.2-1.0); TOTAL PROTEIN 5.6 GM/DL (6.4-8.2)
[2017-08-21] MEDS: methylPREDNISolone SOD SUCC 125 MG/2 ML VIAL IV PUSH SCH (06:00)
[2017-08-21 07:32] VITALS: O2SAT 92
[2017-08-21] MEDS: RESP: ALBUTEROL 2.5 MG/3 ML NEB (PRN) NEB (07:32)
[2017-08-21] MEDS ORDERED: PRED20 PO (08:46)
[2017-08-21] MEDS ORDERED: PANT20 PO (08:51)
--- NOTE | 2017-08-21 08:51 | PD.ONC.PN ---
Subjective Subjective Remarks Afebrile overnight. "I feel great!!" Patient states she feels ready to go home. She has a lot of energy and is no longer requiring oxygen at rest. She does require 1 L on exertion. Objective Data Date Time Temp Pulse Resp B/P (MAP) Pulse Ox O2 Delivery O2 Flow Rate FiO2 08/21/17 03:37 98.4 86 16 127/65 (85) 95 08/21/17 03:21 Room Air 08/21/17 00:40 98.5 92 16 123/83 (96) 94 08/20/17 23:00 Room Air 08/20/17 21:38 90 08/20/17 20:46 98.4 94 137/93 (108) 93 08/20/17 17:43 98.6 88 14 134/85 (101) 96 08/20/17 13:57 98.5 75 14 116/69 (85) 08/20/17 09:03 98 Nasal Cannula 3.00 08/21/17 08/21/17 08/21/17 07:00 15:00 23:00 Intake Total 720 ml Balance 720 ml Result Diagram: 08/21/17 0345 08/21/17 0345 Laboratory Results Laboratory Tests Test 08/21/17 03:45 White Blood Count 9.1 TH/MM3 Red Blood Count 3.05 MIL/MM3 Hemoglobin 10.9 GM/DL Hematocrit 33.1 % Mean Corpuscular Volume 108.5 FL Mean Corpuscular Hemoglobin 35.8 PG Mean Corpuscular Hemoglobin Concent 33.0 % Red Cell Distribution Width 14.8 % Platelet Count 74 TH/MM3 Mean Platelet Volume 9.3 FL Neutrophils (%) (Auto) 81.0 % Lymphocytes (%) (Auto) 11.3 % Monocytes (%) (Auto) 7.5 % Eosinophils (%) (Auto) 0.0 % Basophils (%) (Auto) 0.2 % Neutrophils # (Auto) 7.4 TH/MM3 Lymphocytes # (Auto) 1.0 TH/MM3 Monocytes # (Auto) 0.7 TH/MM3 Eosinophils # (Auto) 0.0 TH/MM3 Basophils # (Auto) 0.0 TH/MM3 CBC Comment AUTO DIFF Differential Comment AUTO DIFF CONFIRMED Platelet Estimate LOW Platelet Morphology Comment ENLARGED Blood Urea Nitrogen 14 MG/DL Creatinine 0.62 MG/DL Random Glucose 106 MG/DL Total Protein 5.6 GM/DL Albumin 2.5 GM/DL Calcium Level 8.1 MG/DL Alkaline Phosphatase 85 U/L Aspartate Amino Transf (AST/SGOT) 20 U/L Alanine Aminotransferase (ALT/SGPT) 88 U/L Total Bilirubin 0.4 MG/DL Sodium Level 142 MEQ/L Potassium Level 3.6 MEQ/L Chloride Level 103 MEQ/L Carbon Dioxide Level 32.5 MEQ/L Anion Gap 7 MEQ/L Estimat Glomerular Filtration Rate 122 ML/MIN Thyroid Stimulating Hormone 3rd Gen 3.180 uIU/ML Random Cortisol 8.2 MCG/DL Administered Medications Medications (Trade) Dose Ordered Sig/Ronaldo Route PRN Reason Start Time Stop Time Status Last Admin Dose Admin Sodium Chloride (NS Flush) 2 ml BID IV FLUSH 08/14/17 21:00 08/20/17 21:31 Enoxaparin Sodium (Lovenox Inj) 40 mg Q24H SQ 08/14/17 16:00 08/20/17 17:46 Methylprednisolone Sodium Succinate (SoluMEDROL INJ) 60 mg Q8HR IV PUSH 08/14/17 22:00 08/20/17 21:31 Albuterol Sulfate (Albuterol Neb) 2.5 mg Q2HR NEB PRN NEB DYSPNEA 08/14/17 18:30 08/21/17 07:32 Sodium Chloride (NS Flush) 5 ml UNSCH PRN IV FLUSH SEE PROTOCOL TABLE 08/17/17 13:00 08/20/17 21:31 Heparin Sodium (Porcine) (Heparin Central Flush) 250 units UNSCH PRN IV FLUSH SEE PROTOCOL TABLE 08/17/17 13:00 08/20/17 05:23 Pantoprazole Sodium (Protonix) 20 mg DAILY PO 08/19/17 14:15 08/20/17 08:43 Guaifenesin (Mucinex Er) 600 mg BID PO 08/19/17 21:00 08/20/17 21:30 Objective Remarks GENERAL: Energetic, bright, excited female, standing in room, speaking excitedly SKIN: Warm and dry. HEAD: Normocephalic. EYES: No injection or drainage. NECK: Supple, trachea midline CARDIOVASCULAR: Regular rate and rhythm RESPIRATORY: scattered rhonchi, aeration overall improved throughout from prior exam. GASTROINTESTINAL: Abdomen soft, non-tender, nondistended. EXTREMITIES: No cyanosis, or edema. NEUROLOGICAL: No obvious focal deficit. Awake, alert, and oriented x3. Assessment/Plan Assessment 52y/o with hodgkin's disease admitted with pneumonitis. Plan 1. patient clear for discharge 2. Rx written for Prednisone 60mg PO daily. Protonix Rx written as well. Patient advised to make an appointment with Dr. Robles in [address] Robles will taper steroids at visit. Julieta Mandel Aug 21, 2017 08:51
--- NOTE | 2017-08-21 08:56 | HHI.FF ---
Face to Face Verification Diagnosis: (1) Interstitial pneumonitis (2) Respiratory distress (3) Hypoxia Home Health Nursing Order: Medical education Signs/symptoms of disease process Oxygen administration education Medication education-adverse effect Nursing assessment with vital signs I have seen patient Adriana Garcia on 08/21/17. My clinical findings support the need for the requested home health care services because: Ltd mobility - disease progression I certify that my clinical findings support that this patient is homebound because: Unsafe to leave home unassisted Ian Mccann MD Aug 21, 2017 08:56
[2017-08-21 08:57] VITALS: BP 153/93; PULSE 110; RESP 18; TEMP 97.6; O2SAT 94
[2017-08-21] MEDS: PANTOPRAZOLE SOD 20 MG DELAYED RELEASE TAB PO SCH (08:58)
[2017-08-21] MEDS: SODIUM CHLORIDE 0.9% FLUSH 10 ML FLUSH IV FLUSH SCH (08:58)
[2017-08-21] MEDS: guaiFENesin E.R. 600 MG TAB PO SCH (08:58)
--- NOTE | 2017-08-21 09:09 | HHI.PR ---
Subjective Remarks This is a pleasant 52 y/o Female with Hodgkin's Lymphoma, who came to ER with worsening dyspnea and cough over the past few days, was started on Levaquin for presumed respiratory infection, the temperature was 101 at that time. admitted on 08/14/17, followed by foot specialist with diagnosis of Pneumonitis on high dose steroids, plan to repeat CT thorax without contrast on Monday08/20/17 if improving will switch to by mouth Prednisone 60 mg daily for one week and discharge. taper steroids on outpatient clinic. stable in her bedroom, continue on Oxygen discussed with nurse. 08/20: Stable seen in her bedroom, no new issues, titrating to remove Oxygen, at this time at room air. as per foot specialist probable discharge in am tomorrow. 08/21: Seen in her bedroom, no nausea, vomit or diarrhea discussed with Oncology 's WRAPPER STITCHER Miss Julieta Mandel okay to discharge home, continue Prednisone for seven days and follow up in his office to start titration of steroids. Objective Vital Signs Date Time Temp Pulse Resp B/P (MAP) Pulse Ox O2 Delivery O2 Flow Rate FiO2 08/21/17 08:57 97.6 110 18 153/93 (113) 94 08/21/17 08:56 1.00 08/21/17 03:37 98.4 86 16 127/65 (85) 95 08/21/17 03:21 Room Air 08/21/17 00:40 98.5 92 16 123/83 (96) 94 08/20/17 23:00 Room Air 08/20/17 21:38 90 08/20/17 20:46 98.4 94 137/93 (108) 93 08/20/17 17:43 98.6 88 14 134/85 (101) 96 08/20/17 13:57 98.5 75 14 116/69 (85) I/O 08/20/17 08/20/17 08/20/17 08/21/17 08/21/17 08/21/17 07:00 15:00 23:00 07:00 15:00 23:00 Intake Total 720 ml 1920 ml 720 ml Output Total 900 ml Balance -180 ml 1920 ml 720 ml Intake Oral 720 ml 1920 ml 720 ml Output Urine Total 900 ml # Voids 8 3 # Bowel Movements 2 Result Diagram: 08/21/17 0345 08/21/17 0345 Imaging Last Impressions Chest CT 08/20/17 0800 Signed Impressions: Service Date/Time: Sunday, August 20, 2017 12:52 - CONCLUSION: Marked decrease in bilateral pulmonary opacity with mild patchy residual predominantly groundglass opacity. Omero Emerson MD Chest X-Ray 08/16/17 0600 Signed Impressions: Service Date/Time: Wednesday, August 16, 2017 09:11 - CONCLUSION: 1. No acute cardiopulmonary disease. Sergio Covarrubias MD Procedures None Other Results Laboratory Tests Test 08/14/17 12:30 08/14/17 12:40 08/14/17 13:20 08/15/17 07:21 Blood Gas Puncture Site RT RADIAL Blood Gas Patient Temperature 98.6 Blood Gas HCO3 26 mmol/L Blood Gas Base Excess 3.0 mmol/L Blood Gas Oxygen Saturation 89 % Arterial Blood pH 7.50 Arterial Blood Partial Pressure CO2 34 mmHg Arterial Blood Partial Pressure O2 58 mmHG Arterial Blood Oxygen Content 15.7 Vol % Arterial Blood Carboxyhemoglobin 1.7 % Arterial Blood Methemoglobin 0.7 % Blood Gas Hemoglobin 12.6 G/DL Oxygen Delivery Device NASAL CANNULA Blood Gas Liter Flow 6 L/M Lactic Acid Level 2.0 mmol/L Urine Color YELLOW Urine Turbidity CLEAR Urine pH 6.5 Urine Specific [place] 1.005 Urine Protein 30 mg/dL Urine Glucose (UA) NEG mg/dL Urine Ketones NEG mg/dL Urine Occult Blood TRACE Urine Nitrite NEG Urine Bilirubin NEG Urine Urobilinogen LESS THAN 2.0 MG/DL Urine Leukocyte Esterase NEG Urine RBC 1 /hpf Urine WBC 1 /hpf Urine Squamous Epithelial Cells 1 /hpf Urine Transitional Epithelial Cells <1 /hpf Microscopic Urinalysis Comment CATH-CULT NOT IND Cytomegalovirus DNA Quant (PCR) Undetected IU/mL Test 08/16/17 09:00 08/19/17 05:30 08/20/17 05:27 08/21/17 03:45 Differential Total Cells Counted 100 Neutrophils % (Manual) 65 % Band Neutrophils % 5 % Lymphocytes % 19 % Monocytes % 9 % Neutrophils # (Manual) 5.3 TH/MM3 Myelocytes 2 % Nucleated Red Blood Cells 3 /100 WBC Blood Urea Nitrogen 15 MG/DL 14 MG/DL Creatinine 0.63 MG/DL 0.62 MG/DL Random Glucose 115 MG/DL 106 MG/DL Calcium Level 8.1 MG/DL 8.1 MG/DL Magnesium Level 2.1 MG/DL Sodium Level 140 MEQ/L 142 MEQ/L Potassium Level 3.6 MEQ/L 3.6 MEQ/L Chloride Level 101 MEQ/L 103 MEQ/L Carbon Dioxide Level 31.4 MEQ/L 32.5 MEQ/L White Blood Count 9.1 TH/MM3 Red Blood Count 3.05 MIL/MM3 Hemoglobin 10.9 GM/DL Hematocrit 33.1 % Mean Corpuscular Volume 108.5 FL Mean Corpuscular Hemoglobin 35.8 PG Mean Corpuscular Hemoglobin Concent 33.0 % Red Cell Distribution Width 14.8 % Platelet Count 74 TH/MM3 Mean Platelet Volume 9.3 FL Neutrophils (%) (Auto) 81.0 % Lymphocytes (%) (Auto) 11.3 % Monocytes (%) (Auto) 7.5 % Eosinophils (%) (Auto) 0.0 % Basophils (%) (Auto) 0.2 % Neutrophils # (Auto) 7.4 TH/MM3 Lymphocytes # (Auto) 1.0 TH/MM3 Monocytes # (Auto) 0.7 TH/MM3 Eosinophils # (Auto) 0.0 TH/MM3 Basophils # (Auto) 0.0 TH/MM3 CBC Comment AUTO DIFF Differential Comment AUTO DIFF CONFIRMED Platelet Estimate LOW Platelet Morphology Comment ENLARGED Total Protein 5.6 GM/DL Albumin 2.5 GM/DL Alkaline Phosphatase 85 U/L Aspartate Amino Transf (AST/SGOT) 20 U/L Alanine Aminotransferase (ALT/SGPT) 88 U/L Total Bilirubin 0.4 MG/DL Anion Gap 7 MEQ/L Estimat Glomerular Filtration Rate 122 ML/MIN Thyroid Stimulating Hormone 3rd Gen 3.180 uIU/ML Random Cortisol 8.2 MCG/DL Objective Remarks GENERAL: Alert, NAD. SKIN: Warm and dry. HEAD: Normocephalic. EYES: No scleral icterus. No injection or drainage. NECK: Supple, trachea midline. No JVD or lymphadenopathy. CARDIOVASCULAR: Regular rate and rhythm without murmurs, gallops, or rubs. RESPIRATORY: Moderate breath sounds, diffuse crackles noted. GASTROINTESTINAL: Abdomen soft, non-tender, nondistended. MUSCULOSKELETAL: No cyanosis, or edema. BACK: Nontender without obvious deformity. No CVA tenderness. Medications and IVs Current Medications Medications (Trade) Dose Ordered Sig/Ronaldo Route Start Time Stop Time Status Last Admin (NS Flush) 2 ml UNSCH PRN IV FLUSH 08/14/17 15:00 (NS Flush) 2 ml BID IV FLUSH 08/14/17 21:00 08/21/17 08:58 (Lovenox Inj) 40 mg Q24H SQ 08/14/17 16:00 08/20/17 17:46 (Narcan Inj) 0.4 mg UNSCH PRN IV PUSH 08/14/17 15:00 (Milk Of Magnesia Liq) 30 ml Q12H PRN PO 08/14/17 15:00 (Senokot) 17.2 mg Q12H PRN PO 08/14/17 15:00 (Dulcolax Supp) 10 mg DAILY PRN RECTAL 08/14/17 15:00 (Lactulose Liq) 30 ml DAILY PRN PO 08/14/17 15:00 (SoluMEDROL INJ) 60 mg Q8HR IV PUSH 08/14/17 22:00 08/20/17 21:31 (Tessalon) 100 mg TID PRN PO 08/14/17 18:15 (Albuterol Neb) 2.5 mg Q2HR NEB PRN NEB 08/14/17 18:30 08/21/17 07:32 (Tylenol) 650 mg Q4H PRN PO 08/15/17 09:30 (Restoril) 15 mg HS PRN PO 08/15/17 21:00 (NS Flush) 5 ml UNSCH PRN IV FLUSH 08/17/17 13:00 08/20/17 21:31 (Heparin Central Flush) 250 units UNSCH PRN IV FLUSH 08/17/17 13:00 08/20/17 05:23 (Heparin Central Flush) 500 units UNSCH IV FLUSH 08/17/17 13:00 (Protonix) 20 mg DAILY PO 08/19/17 14:15 08/21/17 08:58 (Afrin 0.05% [place]) 2 spray Q12H PRN NASAL 08/19/17 15:15 (Mucinex Er) 600 mg BID PO 08/19/17 21:00 08/21/17 08:58 A/P Assessment and Plan 1. Acute respiratory failure Hypoxic continue Oxygen as needed 2. Probable drug-induced Pneumonitis, to continue Solu-Medrol 60 mg every 8 hours consider to switch to Prednisone by mouth 60 mg for seven days and continue titration on outpatient clinic depending of the new CT chest without contrast for 08/20/17, patient status post ABVD chemotherapy and radiation, now on Nivolumab, continue Bronchodilator, Mucolytic incentive spirometry and wean oxygen to keep oxygen saturation over 90% removed Cefepime off antibiotics. patient failed walk test and will go home on Oxygen. 3. Hodgkin's Lymphoma followed by his Primary foot specialist Doctor Margaret Discussed with nurse, Patient and Oncology's WRAPPER STITCHER Miss Julieta prabhakar to discharge home now. Full code. Lovenox. Discharge Planning Discharge Home now. Ian Mccann MD Aug 21, 2017 09:09
--- NOTE | 2017-08-21 09:12 | HHI.DS ---
Discharge Summary Admission Date Aug 14, 2017 at 15:04 Discharge Date: Aug 21, 2017 Admitting Diagnosis respiratory distress, hypoxia, diffuse interstitial pneumonitis (1) Cough ICD Code: R05 - Cough Diagnosis: Principal Status: Acute (2) Interstitial pneumonitis ICD Code: J84.89 - Other specified interstitial pulmonary diseases Diagnosis: Principal Status: Acute (3) Respiratory distress ICD Code: R06.03 - Acute respiratory distress Diagnosis: Principal Status: Acute (4) Hypoxia ICD Code: R09.02 - Hypoxemia Diagnosis: Principal Status: Acute Procedures None Brief History - From Admission The patient is a 52-year-old female with history of Hodgkin's lymphoma who presented to the emergency department with complaint of worsening dyspnea and cough over the past few days. She states that she was seen by her oncologist, Dr. Robles, a few days ago and was started on Levaquin for presumed respiratory infection. She states she had a temperature of 101 at that time. Her symptoms did not improve and today she had worsening dyspnea. She resented to the emergency department was noted to have an oxygen saturation of 85% on room air. She does not use oxygen at home. Her most recent chemotherapy was Monday. Most recent radiation therapy was November 2016. CBC/BMP: 08/21/17 0345 08/21/17 0345 Significant Findings Laboratory Tests Test 08/19/17 05:30 08/20/17 05:27 08/21/17 03:45 Red Blood Count 3.10 MIL/MM3 (4.00-5.30) 3.05 MIL/MM3 (4.00-5.30) Hemoglobin 11.1 GM/DL (11.6-15.3) 10.9 GM/DL (11.6-15.3) Hematocrit 33.2 % (35.0-46.0) 33.1 % (35.0-46.0) Mean Corpuscular Volume 107.2 FL (80.0-100.0) 108.5 FL (80.0-100.0) Mean Corpuscular Hemoglobin 35.9 PG (27.0-34.0) 35.8 PG (27.0-34.0) Platelet Count 77 TH/MM3 (150-450) 74 TH/MM3 (150-450) Neutrophils (%) (Auto) 70.2 % (16.0-70.0) 81.0 % (16.0-70.0) Monocytes (%) (Auto) 13.0 % (0.0-8.0) Monocytes # (Auto) 1.0 TH/MM3 (0-0.9) Monocytes % 9 % (0-8) Myelocytes 2 % (0-0) Nucleated Red Blood Cells 3 /100 WBC (0-0) Platelet Estimate LOW (NORMAL) LOW (NORMAL) Random Glucose 115 MG/DL (74-106) Calcium Level 8.1 MG/DL (8.5-10.1) 8.1 MG/DL (8.5-10.1) Platelet Morphology Comment ENLARGED (NORMAL) Total Protein 5.6 GM/DL (6.4-8.2) Albumin 2.5 GM/DL (3.4-5.0) Alanine Aminotransferase (ALT/SGPT) 88 U/L (10-53) Carbon Dioxide Level 32.5 MEQ/L (21.0-32.0) Imaging Last Impressions Chest CT 08/20/17 0800 Signed Impressions: Service Date/Time: Sunday, August 20, 2017 12:52 - CONCLUSION: Marked decrease in bilateral pulmonary opacity with mild patchy residual predominantly groundglass opacity. Omero Emerson MD Chest X-Ray 08/16/17 0600 Signed Impressions: Service Date/Time: Wednesday, August 16, 2017 09:11 - CONCLUSION: 1. No acute cardiopulmonary disease. Sergio Covarrubias MD PE at Discharge GENERAL: Alert, NAD. SKIN: Warm and dry. HEAD: Normocephalic. EYES: No scleral icterus. No injection or drainage. NECK: Supple, trachea midline. No JVD or lymphadenopathy. CARDIOVASCULAR: Regular rate and rhythm without murmurs, gallops, or rubs. RESPIRATORY: Decreased breath sounds bilateral, no wheezing or crackles at this time. GASTROINTESTINAL: Abdomen soft, non-tender, nondistended. MUSCULOSKELETAL: No cyanosis, or edema. BACK: Nontender without obvious deformity. No CVA tenderness. Hospital Course This is a pleasant 52 y/o Female with Hodgkin's Lymphoma, who came to ER with worsening dyspnea and cough over the past few days, was started on Levaquin for presumed respiratory infection, the temperature was 101 at that time. admitted on 08/14/17, followed by pharmacovigilance specialist with diagnosis of Pneumonitis on high dose steroids, plan to repeat CT thorax without contrast on Monday08/20/17 if improving will switch to by mouth Prednisone 60 mg daily for one week and discharge. taper steroids on outpatient clinic. stable in her bedroom, continue on Oxygen discussed with nurse. 08/20: Stable seen in her bedroom, no new issues, titrating to remove Oxygen, at this time at room air. as per pharmacovigilance specialist probable discharge in am tomorrow. 08/21: Seen in her bedroom, no nausea, vomit or diarrhea discussed with Oncology 's EMERGENCY VETERINARY ASSISTANT Miss Julieta prabhakar to discharge home, continue Prednisone for seven days and follow up in his office to start titration of steroids. Assessment and Plan 1. Acute respiratory failure Hypoxic continue Oxygen as needed 2. Probable drug-induced Pneumonitis, to continue Solu-Medrol 60 mg every 8 hours consider to switch to Prednisone by mouth 60 mg for seven days and continue titration on outpatient clinic depending of the new CT chest without contrast for 08/20/17, patient status post ABVD chemotherapy and radiation, now on Nivolumab, continue Bronchodilator, Mucolytic incentive spirometry and wean oxygen to keep oxygen saturation over 90% removed Cefepime off antibiotics. patient failed walk test and will go home on Oxygen. 3. Hodgkin's Lymphoma followed by his Primary pharmacovigilance specialist Doctor Margaret Discussed with nurse, Patient and Oncology's EMERGENCY VETERINARY ASSISTANT Miss Julieta prabhakar to discharge home now. Full code. Lovenox. Discharge Planning Discharge Home now. Pt Condition on Discharge: Stable Discharge Disposition: Disch w/ Home Health Serv Discharge Time: > 30 minutes Discharge Instructions DIET: Follow Instructions for: As Tolerated, No Restrictions Activities you can perform: Regular-No Restrictions Ian Mccann MD Aug 21, 2017 09:12
[2017-08-21] MEDS ORDERED: guaiFENesin ER PO (09:24)
[2017-08-21] MEDS ORDERED: PERC10TA27 PO (09:24)
[2017-08-21] MEDS ORDERED: NEBULIZER COMPR1 KIT (09:24)
[2017-08-21] MEDS ORDERED: BENZ100 PO (09:24)
[2017-08-21] MEDS ORDERED: OXYGENDME NAS.CANULA (09:24)
[2017-08-21] MEDS ORDERED: IPRASOL INH (09:41)
[2017-08-21] MEDS: SODIUM CHLORIDE 0.9% FLUSH 10 ML FLUSH IV FLUSH PRN (11:58)
== END 2017-08-21 12:51 | disposition home health service (06) | DRG 871 ==
LOC: NEPE 12:01 → NEDA 15:04 → N04B 17:30 → HCIN 08-15 17:50
PROVIDERS: ADMIT Internal Medicine; ATTEND Internal Medicine
DX: A41.9 Sepsis, unspecified organism (principal); J96.01 Acute respiratory failure with hypoxia; J18.8 Other pneumonia, unspecified organism; C81.90 Hodgkin lymphoma, unspecified, unspecified site; Z94.81 Bone marrow transplant status; F17.210 Nicotine dependence, cigarettes, uncomplicated; F41.9 Anxiety disorder, unspecified; Z88.6 Allergy status to analgesic agent; Z88.5 Allergy status to narcotic agent
CPT/HCPCS: 36600; 71045; 71046; 71250; 80048; 80053; 81001; 82533; 82805; 83605; 83735; 84443; 85007; 85025; 85027; 87040; 87252; 87497; 94150; 94618; 94640; 94664; 96365; 96366; J0692; J1642; J1650; J2930; J7030; J7613